=== PATIENT | male | born 1950 | race Caucasian/White ===

== ENCOUNTER 2025-03-28 10:47 | Inpatient (IN) ==
--- NOTE | 2025-03-28 11:05 | DR.N/VMALE ---
HPI Time Seen Time Seen by Provider: 03/28/25 11:02 Complaints Chief Complaint Doctors Comments: This patient complains of nausea and vomiting since 3 AM. He also stated that he has been constipated he did have some stool yesterday but it was small and hard. He has a history of colon and liver cancer. PMH PMH Past Medical History: Angina, Coronary Artery Disease, Dyslipidemia, Hypertension and Kidney Stones Past Surgical History: Yes Surgical History: Angioplasty/Stents and Bowel Resection Social History Do you use any recreational Drugs:: No ROS Review of Systems Constitutional: Other (nausea,vomiting and abdominal pain) Eyes: No Symptoms Reported ENTM: No Symptoms Reported Respiratoy: No Symptoms Reported Cardiovascular: No Symptoms Reported Gastrointestinal/Abdominal: Abdominal Pain, Nausea and Vomiting Genitourinary: No Symptoms Reported Neurological: No Symptoms Reported Musculoskeletal: No Symptoms Reported Integumentary: No Symptoms Reported Hematologic/Lymphatic: No Symptoms Reported Endocrine: No Symptoms Reported Psychiatric: No Symptoms Reported All Other Systems: Reviewed and Negative PE Vital Signs Vitals: Vital Signs Temperature 97.5 F Pulse Rate 89 Pulse Rate 89 Pulse Rate 85 Pulse Rate 96 Pulse Rate 99 Pulse Rate 95 Pulse Rate 104 Respiratory Rate 22 Blood Pressure 122/79 Blood Pressure 121/77 Blood Pressure 118/77 Blood Pressure 118/77 Blood Pressure 120/77 Blood Pressure 111/85 O2 Sat by Pulse Oximetry 95 O2 Sat by Pulse Oximetry 95 O2 Sat by Pulse Oximetry 96 O2 Sat by Pulse Oximetry 98 O2 Sat by Pulse Oximetry 97 O2 Sat by Pulse Oximetry 94 General Limitations: No Limitations General Appearance: In Distress (mild distress) Head Head Exam: Normal Inspection, Atraumatic and Normocephalic Eyes Eye exam: Normal Appearance, PERRL and EOMI ENT ENT Exam: Normal Exam Neck Neck Exam: Normal Inspection Chest Chest Inspection: Normal Inspection and Symmetric Chest Wall Rise Respiratory Respiratory Exam: Normal Lung Sounds Bilat Respiratory Exam: Bilateral: Clear to Auscultation Cardiovascular Cardiovascular Exam: Regular Rate Abdominal Exam Abdominal Exam: Normal Inspection, Normal Bowel Sounds, Soft and Tenderness (periumbilical) Rectal Rectal Exam: Deferred Extremities Extremities Exam: Normal Inspection Back Back Exam: Normal Inspection Neurologic Neurological Exam: Alert, Oriented X3 and CN II-XII Intact Psychiatric Psychiatric Exam: Normal Affect MDM Differential Diagnosis Differential Diagnosis: Considerations may Include:: Appendicitis, Bowel Obstruction, Food Poisoning, Gastroenteritis and Other COURSE Treatment Treatment: Patient remained relatively stable during ER evaluation. We did do some blood work on this patient and his CBC showed a WBC of 19.7 hemoglobin was 14.8 hematocrit 44.9 platelets were 313. He did a metabolic panel that was significant for BUN was 20 creatinine 1.18 blood sugar was 146 his GFR was 60. We did a CT scan of his abdomen pelvis that showed a #1 small bowel obstruction #2 multiple renal cyst #3 moderate stool and #4 fat-containing right inguinal hernia. There was no appendicitis or diverticulitis present. Patient was given a total of 8 mg Zofran in the ER and was given also Zosyn 3.375 mg IV. Consultation was made with Dr. Tovar at 1300 and told about the patient with the small bowel obstruction she except that he the patient to our services knowing that we also would consult Dr. Carcamo from further surgical evaluation of this patient. Patient was told of the plan to admit to Dr. Tovar and have Dr. Rubio consult on him and he agreed to the consultation and admission. Case management was consulted and they said this patient could be put in as an inpatient admission [facility] Labs Reviewed Laboratory Results Reviewed?: Yes 03/28/25 11:03 03/28/25 11:03 Laboratory: WBC 19.7 X10^3/uL (3.6-10.0) H 03/28/25 11:03 RBC 4.99 X10^6/uL (4.7-6.0) 03/28/25 11:03 Hgb 14.8 g/dL (13.5-18.0) 03/28/25 11:03 Hct 44.9 % (42.0-54.0) 03/28/25 11:03 MCV 89.9 fL (80.0-100.0) 03/28/25 11:03 MCH 29.7 pg (27.0-34.0) 03/28/25 11:03 MCHC 33.0 g/dL (33.0-35.0) 03/28/25 11:03 RDW 13.4 % (11.6-16.5) 03/28/25 11:03 Plt Count 313 X10^3/uL (150.0-450.0) 03/28/25 11:03 Plt Count Comment Adequate (ADEQUATE) 03/28/25 11:03 MPV 9.0 fL (7.4-11.0) 03/28/25 11:03 Neut % (Auto) 91.1 % (42.0-75.0) H 03/28/25 11:03 Lymph % (Auto) 4.2 % (21.0-51.0) L 03/28/25 11:03 [place] % (Auto) 4.0 % (0.0-13.0) 03/28/25 11:03 Eos % (Auto) 0.3 % (0.9-2.9) L 03/28/25 11:03 Baso % (Auto) 0.4 % (0.2-1.0) 03/28/25 11:03 Neut # (Auto) 17.9 x10^3/uL (2.2-4.8) H 03/28/25 11:03 Lymph # (Auto) 0.8 X10^3/uL (1.3-2.9) L 03/28/25 11:03 [place] # (Auto) 0.8 x10^3/uL (0.3-0.8) 03/28/25 11:03 Eos # (Auto) 0.1 x10^3/uL (0.0-0.2) 03/28/25 11:03 Baso # (Auto) 0.1 X10^3/uL (0.0-0.1) 03/28/25 11:03 Absolute Nucleated RBC 0.0 /100WBC 03/28/25 11:03 Total Counted 100 03/28/25 11:03 Neutrophils % (Manual) 92 % (39-76) H 03/28/25 11:03 Lymphocytes % (Manual) 4 % (13-43) L 03/28/25 11:03 Monocytes % (Manual) 3 % (4-9) L 03/28/25 11:03 Eosinophils % (Manual) 1 % (0-6) 03/28/25 11:03 Plt Morphology Comment Normal (NORMAL) 03/28/25 11:03 RBC Morphology Normal (NORMAL) 03/28/25 11:03 Sodium 141 mmol/L (136-145) 03/28/25 11:03 Corrected Sodium 142 mmol/L (136-145) 03/28/25 11:03 Potassium 3.9 mmol/L (3.5-5.1) 03/28/25 11:03 Chloride 103 mmol/L (98-107) 03/28/25 11:03 Carbon Dioxide 29.7 mmol/L (21-32) 03/28/25 11:03 BUN 20 mg/dL (7-18) H 03/28/25 11:03 Creatinine 1.18 mg/dL (0.70-1.30) 03/28/25 11:03 Est GFR (MDRD) Af Amer > 60 (>60) 03/28/25 11:03 Est GFR (MDRD) Non-Af > 60 (>60) 03/28/25 11:03 Glucose 146 mg/dL (65-99) H 03/28/25 11:03 Calcium 9.6 mg/dL (8.5-10.1) 03/28/25 11:03 Corrected Calcium TNP 03/28/25 11:03 Total Bilirubin 1.60 mg/dL (0.2-1.0) H 03/28/25 11:03 AST 29 Units/L (15-37) 03/28/25 11:03 ALT 31 Units/L (12-78) 03/28/25 11:03 Alkaline Phosphatase 153 Units/L (46-116) H 03/28/25 11:03 Total Protein 8.3 g/dL (6.4-8.2) H 03/28/25 11:03 Albumin 4.5 g/dL (3.4-5.0) 03/28/25 11:03 Globulin 3.8 g/dL (2.5-4.5) 03/28/25 11:03 Albumin/Globulin Ratio 1.2 Ratio (1.1-2.1) 03/28/25 11:03 Opioid Opioid Risk Tool Total: 0 Total Score Risk Category: Low Risk Copyright: [employer] predicting aberrant behaviors Discharge Plan Diagnosis Discharge Problem: Small bowel obstruction Discharge Plan Patient Disposition: ADMITTED INPATIENT Condition: Stable Orders to Discharge Patient Discharge Orders: Transfer (Routine); Ordered 03/28/25 Ordered By: Joseph Mauricio
[2025-03-28 11:10] VITALS: BMI 31.3
[2025-03-28] MEDS: NS 1,000 ML IV 1,000 ML IV ONE (11:20)
[2025-03-28 11:21] LABS: BASOPHILS # (AUTO) 0.1 X10^3/uL (0.0-0.1); BASOPHILS % (AUTO) 0.4 % (0.2-1.0); EOSINOPHILS # (AUTO) 0.1 x10^3/uL (0.0-0.2); EOSINOPHILS % (AUTO) 0.3 % (0.9-2.9); HEMATOCRIT 44.9 % (42.0-54.0); HEMOGLOBIN 14.8 g/dL (13.5-18.0); LYMPHOCYTES # (AUTO) 0.8 X10^3/uL (1.3-2.9); LYMPHOCYTES % (AUTO) 4.2 % (21.0-51.0); MEAN CORPUSCULAR HEMOGLOBIN 29.7 pg (27.0-34.0); MEAN CORPUSCULAR VOLUME 89.9 fL (80.0-100.0); MONOCYTES # (AUTO) 0.8 x10^3/uL (0.3-0.8); NEUTROPHILS # (AUTO) 17.9 x10^3/uL (2.2-4.8); NEUTROPHILS % (AUTO) 91.1 % (42.0-75.0); PLATELET COUNT 313 X10^3/uL (150.0-450.0); RED BLOOD COUNT 4.99 X10^6/uL (4.7-6.0); RED CELL DISTRIBUTION WIDTH 13.4 % (11.6-16.5); WHITE BLOOD COUNT 19.7 X10^3/uL (3.6-10.0)
[2025-03-28] MEDS: ZOFRAN INJ 4 MG VIAL IVP ONE ×2 (11:24→12:46)
[2025-03-28 11:38] LABS: ALANINE AMINOTRANSFERASE 31 Units/L (12-78); ALBUMIN 4.5 g/dL (3.4-5.0); ALKALINE PHOSPHATASE 153 Units/L (46-116); ASPARTATE AMINO TRANSFERASE 29 Units/L (15-37); BLOOD UREA NITROGEN 20 mg/dL (7-18); CALCIUM 9.6 mg/dL (8.5-10.1); CARBON DIOXIDE 29.7 mmol/L (21-32); CHLORIDE 103 mmol/L (98-107); COR NA(FOR HYPERGLY) 142 mmol/L (136-145); CREATININE 1.18 mg/dL (0.70-1.30); GLUCOSE 146 mg/dL (65-99); POTASSIUM 3.9 mmol/L (3.5-5.1); SODIUM 141 mmol/L (136-145); TOTAL PROTEIN 8.3 g/dL (6.4-8.2); eGFR NON BLACK RACES > 60 (>60)
[2025-03-28 11:51] LABS: PLATELET MORPHOLOGY COMMENT NORMAL (NORMAL)
--- NOTE | 2025-03-28 11:57 | CT ---
EXAMINATION: ABDOMEN/PELVIS W/O CON HISTORY: Pt states he started vomiting around 0330 this morning and hasn't been able to hold anything down.; . COMPARISON: None. TECHNIQUE: Unenhanced axial images were obtained through the abdomen and pelvis using renal stone protocol. Reformatted images were obtained as well. Lack of oral and IV contrast limits diagnostic sensitivity The above CT scan was done with automated exposure control and the mA and kV was adjusted to obtain quality images according to patient size. FINDINGS: Lung bases: Bronchial thickening with atelectasis. Elevated left hemidiaphragm. No acute infiltrates Liver: No acute findings or focal lesions. Surgical clips along the right lobe of the liver which may represent partial resection. GB/Biliary: Contracted or surgically absent. No dilated duct Spleen: Normal size and density Pancreas: No acute findings. No pseudocyst or dilated duct Adrenal Glands: No mass Kidneys: No obstructing stone, hydronephrosis or solid lesion. Punctate nonobstructing stones. Bilateral renal cysts. The largest is in the left upper pole measuring 10.2 x 9.7 cm Abdominal aorta: Tapers normally Retroperitoneum: No pathologically enlarged lymph nodes Bowel: There is a small bowel obstruction with zone of transition in the right lower abdomen in the distal ileum. No free air, pneumatosis or abscess. Evaluation limited by lack of oral and IV contrast. Unremarkable appendix. No other thickened or dilated loops of bowel, free air, pneumatosis or abscess. Moderate stool in the colon. No CT evidence for appendicitis, diverticulitis. Bladder/: Ureters and bladder unremarkable. Enlarged prostate with calcification. Seminal vesicles unremarkable. Fat containing right inguinal hernia. Osseous: Mild degenerative changes in the spine. No acute findings or bony lesions. IMPRESSION: Small-bowel obstruction with zone of transition in the right lower abdomen in the distal ileum. No free air, pneumatosis or abscess. No CT evidence for appendicitis or diverticulitis. No obstructing renal stones. Multiple renal cysts. THIS IS AN ELECTRONICALLY VERIFIED FINAL REPORT 03/28/2025 11:53 AM - Electronically signed by Nick Quijano MD
[2025-03-28] MEDS: ZOSYN VIAL 3.375 GRAMS 3.375 G in NS 100 ML IV 100 ML IV ONE (12:39)
[2025-03-28] MEDS ORDERED: ULTANE GAS IN ONE (13:09)
[2025-03-28] MEDS ORDERED: XYLOCAINE 2 % (PLAIN) ONE (13:09)
[2025-03-28] MEDS ORDERED: KETAMINE HCL ONE (13:09)
[2025-03-28] MEDS: NS 1,000 ML IV 1,000 ML IV SCH (14:43)
[2025-03-28] MEDS: ZOSYN VIAL 3.375 GRAMS IV ONE (14:43)
[2025-03-28] MEDS: NS 1,000 ML IV 1,000 ML ONE (14:43)
[2025-03-28] MEDS: NS 100 ML IV 100 ML ONE (14:44)
[2025-03-28] MEDS ORDERED: PROVENTIL NEB TX 0.083% 2.5MG/ 3ML ONE (16:47)
[2025-03-28] MEDS: ZOFRAN INJ 4 MG VIAL IVP PRN (16:55)
[2025-03-28] MEDS ORDERED: PROVENTIL NEB TX 0.083% 2.5MG/ 3ML NEB SCH (17:00)
[2025-03-28] MEDS: ZOSYN VIAL 3.375 GRAMS 3.375 G in NS 100 ML IV 100 ML IV SCH (21:24)
[2025-03-28] MEDS: NS 250 ML IV 25 ML IV PRN (21:26)
--- NOTE | 2025-03-28 23:19 | DR.CONSULT ---
CONSULT Consultation for Day of: Date: 03/28/25 Chief Complaint Chief Complaint: Abdominal pain and distention, nausea and vomiting Allergies Allergies Allergy/AdvReac Type Severity Reaction Status Date / Time codeine AdvReac Intermediate Verified 03/28/25 11:11 opioids AdvReac Intermediate Uncoded 03/28/25 11:11 History of Present Illness History of Present Illness: This is a 74-year-old male who presented with several history of abdominal pain, distention with nausea and vomiting. He was brought the emergency room for evaluation. CT scan consistent with possible small bowel obstruction with transition of small bowel. History of colon cancer with resection in 2014 followed by metastatic disease to the liver in 2016 requiring liver resection and chemotherapy. Patient is now disease-free. Also history of coronary artery disease with stenting of coronary x 1 in 2014. Patient without chest pain or shortness of breath. Past Medical History Past Medical History: Angina, Coronary Artery Disease, Dyslipidemia, Hypertension and Kidney Stones Past Surgical History Surgical History: Bowel Resection, Cholecystectomy and Other Additional Surgical History: partial resection of liver for metastasis Family History Family Medical History: Diabetes Mellitus Social History Does patient currently use any type of tobacco product: No Type of Tobacco Use: None Does any household member use tobacco: Yes Alcohol Use: None Drug Use: None Medications Home Medications: codeine Adverse Reaction (Intermediate, Verified 03/28/25 11:11) opioids Adverse Reaction (Intermediate, Uncoded 03/28/25 11:11) CONTINUE taking the following medications levothyroxine 25 mcg tablet 25 mcg PO QDAY 03/28/25 [History] Review of Systems Constitutional: See HPI Eyes: No Symptoms Reported ENT: No Symptoms Reported Cardiovascular: No Symptoms Reported Gastrointestinal: See HPI Genitourinary: No Symptoms Reported Musculoskeletal: No Symptoms Reported Skin: No Symptoms Reported Neurological: No Symptoms Reported Physical Exam Vital Signs: Vital Signs Temperature 98.1 F Temperature 97.9 F Pulse Rate [Left Radial] 86 Pulse Rate [Left Radial] 92 Respiratory Rate 20 Respiratory Rate 20 Blood Pressure [Left Arm] 128/76 Blood Pressure [Left Arm] 136/78 O2 Sat by Pulse Oximetry 99 O2 Sat by Pulse Oximetry 97 Oriented: Normal, Time, Person and Place Eyes: Normal Ear: Normal Nose: Normal Throat: Normal Respiratory: Clear Throughout : Normal Auscultation: Bowel Sounds: Decreased Palpation: Other (Distended abdomen but not tender, healed midline incision of the abdomen from xiphoid to pelvis. No obvious hernias.) Tenderness: Normal Skin: Normal Musculoskeletal: Normal Psychiatric: Normal Mood Description: Calm Affect: Normal Plan (1) Small bowel obstruction: Status: Acute Plan: Patient being hydrated. NPO. Tried to pass a nasogastric tube but was unsuccessful. Patient will be observed with sequential exams and sequential x-rays. If patient does not improve may require surgical exploration. (2) Essential (primary) hypertension: Status: Acute (3) Hyperlipidemia: Status: None Qualifiers: Hyperlipidemia type: mixed hyperlipidemia Qualified Code(s): E78.2 - Mixed hyperlipidemia
[2025-03-29] MEDS: MORPHINE SULFATE INJ 2 MG INJ IVP PRN (00:14)
[2025-03-29 05:37] LABS: BASOPHILS # (AUTO) 0.1 X10^3/uL (0.0-0.1); BASOPHILS % (AUTO) 0.5 % (0.2-1.0); EOSINOPHILS # (AUTO) 0.1 x10^3/uL (0.0-0.2); EOSINOPHILS % (AUTO) 0.3 % (0.9-2.9); HEMATOCRIT 40.7 % (42.0-54.0); HEMOGLOBIN 13.6 g/dL (13.5-18.0); MEAN CORPUSCULAR HGB CONC 33.3 g/dL (33.0-35.0); MEAN CORPUSCULAR VOLUME 90.2 fL (80.0-100.0); MONOCYTES # (AUTO) 1.4 x10^3/uL (0.3-0.8); MONOCYTES % (AUTO) 7.8 % (0.0-13.0); NEUTROPHILS # (AUTO) 14.7 x10^3/uL (2.2-4.8); NEUTROPHILS % (AUTO) 85.4 % (42.0-75.0); PLATELET COUNT 281 X10^3/uL (150.0-450.0); RED BLOOD COUNT 4.51 X10^6/uL (4.7-6.0); RED CELL DISTRIBUTION WIDTH 13.9 % (11.6-16.5); WHITE BLOOD COUNT 17.3 X10^3/uL (3.6-10.0)
[2025-03-29 05:51] LABS: ALANINE AMINOTRANSFERASE 26 Units/L (12-78); ALBUMIN 3.7 g/dL (3.4-5.0); ALKALINE PHOSPHATASE 119 Units/L (46-116); ASPARTATE AMINO TRANSFERASE 20 Units/L (15-37); BLOOD UREA NITROGEN 21 mg/dL (7-18); CALCIUM 8.7 mg/dL (8.5-10.1); CARBON DIOXIDE 32.7 mmol/L (21-32); CHLORIDE 105 mmol/L (98-107); COR NA(FOR HYPERGLY) 146 mmol/L (136-145); CREATININE 1.13 mg/dL (0.70-1.30); GLUCOSE 126 mg/dL (65-99); POTASSIUM 3.5 mmol/L (3.5-5.1); SODIUM 145 mmol/L (136-145); TOTAL PROTEIN 7.1 g/dL (6.4-8.2); eGFR NON BLACK RACES > 60 (>60)
--- NOTE | 2025-03-29 07:59 | RAD ---
EXAM: ACUTE ABDOMEN SERI ES HISTORY: SMALL BOWEL OBSTRUCTION; HX: CAD, HTN, COLON AND LIVER CANCER SX: HERNIA REPAIR, BOWEL RESECTION, STENTS COMPARISON: CT from same date TECHNIQUE: AP chest; AP abdomen supine and upright FINDINGS: Unremarkable cardiac silhouette. Low lung volumes. No focal consolidation, pleural effusion, or visible pneumothorax. Mildly prominent air-filled small bowel loop in the mid abdomen. Scattered air-filled small and large bowel loops. Right upper quadrant metallic surgical clips. No free peritoneal air. IMPRESSION: Persistent mildly prominent air-filled small bowel loops in the mid abdomen. No free peritoneal air. THIS IS AN ELECTRONICALLY VERIFIED FINAL REPORT 03/29/2025 7:56 AM - Electronically signed by Chino Denis MD
--- NOTE | 2025-03-29 14:34 | RAD ---
EXAM: ACUTE ABDOMEN SERI ES HISTORY: SBO; COMPARISON: 03/28/2025 TECHNIQUE: AP chest; AP abdomen supine and upright FINDINGS: Unremarkable cardiac silhouette. No focal consolidation, pleural effusion, or visible pneumothorax. Persistent prominent air-filled small bowel loops in the mid abdomen. Relative paucity of large bowel gas. No free peritoneal air. Right upper quadrant metallic surgical clips. IMPRESSION: Persistent prominent small bowel loops in the mid abdomen, suspicious for obstruction. THIS IS AN ELECTRONICALLY VERIFIED FINAL REPORT 03/29/2025 2:30 PM - Electronically signed by Chino Denis MD
--- NOTE | 2025-03-29 15:01 | DR.H&P ---
H&P History & Physical for Day of: H&P Date: 03/29/25 Chief Complaint Chief Complaint: N/V and abdominal pain History of Present Illness History of Present Illness: Mr Ramirez is a 74y/o male with a PMH of Colon cancer, HTN, CAD, HLD presented with worsening N/V abdominal pain that started previous night. He has a hx of prev SBO, colon resection and part of liver resection. ER work up showed CTAP concerning for SBO. He had elevated WBC. He was started on fluids, IV antibiotics, pain control and NPO. Dr Rubio with general surgery was consulted. NGT was attempted but unsuccessful. He was admitted for further management. He is feeling better today. He had one episode of vomiting this morning. He states abdominal pain has eased now. KUB pending. Labs/imaging reviewed: -WBC 17.3 Hgb 13.6 K 3.5 Cr 1.13 -CTAP reviewed Plan: Follow surgery recommendations, keep NPO. Continue fluids, pain control and IV Zosyn. Follow KUB results. Replace electrolytes as per protocol. Monitor AM labs/imaging. Past Medical History Past Medical History: Angina, Coronary Artery Disease, Dyslipidemia, Hypertension and Kidney Stones Past Surgical History Surgical History: Bowel Resection, Cholecystectomy and Other Additional Surgical History: partial resection of liver for metastasis Family History Family Medical History: Diabetes Mellitus Social History Does patient currently use any type of tobacco product: No Type of Tobacco Use: None Does any household member use tobacco: Yes Alcohol Use: None Drug Use: None Medications Home Medications: Home Medications Medication Instructions Recorded Confirmed Type levothyroxine 25 mcg tablet 25 mcg PO QDAY 03/28/25 History Allergies Allergies Allergy/AdvReac Type Severity Reaction Status Date / Time codeine AdvReac Intermediate Verified 03/28/25 11:11 opioids AdvReac Intermediate Uncoded 03/28/25 11:11 Labs 03/29/25 05:12 03/29/25 05:12 Labs: Laboratory WBC 17.3 X10^3/uL (3.6-10.0) H 03/29/25 05:12 RBC 4.51 X10^6/uL (4.7-6.0) L 03/29/25 05:12 Hgb 13.6 g/dL (13.5-18.0) 03/29/25 05:12 Hct 40.7 % (42.0-54.0) L 03/29/25 05:12 MCV 90.2 fL (80.0-100.0) 03/29/25 05:12 MCH 30.0 pg (27.0-34.0) 03/29/25 05:12 MCHC 33.3 g/dL (33.0-35.0) 03/29/25 05:12 RDW 13.9 % (11.6-16.5) 03/29/25 05:12 Plt Count 281 X10^3/uL (150.0-450.0) 03/29/25 05:12 Plt Count Comment Adequate (ADEQUATE) 03/28/25 11:03 MPV 9.0 fL (7.4-11.0) 03/29/25 05:12 Neut % (Auto) 85.4 % (42.0-75.0) H 03/29/25 05:12 Lymph % (Auto) 6.0 % (21.0-51.0) L 03/29/25 05:12 [place] % (Auto) 7.8 % (0.0-13.0) 03/29/25 05:12 Eos % (Auto) 0.3 % (0.9-2.9) L 03/29/25 05:12 Baso % (Auto) 0.5 % (0.2-1.0) 03/29/25 05:12 Neut # (Auto) 14.7 x10^3/uL (2.2-4.8) H 03/29/25 05:12 Lymph # (Auto) 1.0 X10^3/uL (1.3-2.9) L 03/29/25 05:12 [place] # (Auto) 1.4 x10^3/uL (0.3-0.8) H 03/29/25 05:12 Eos # (Auto) 0.1 x10^3/uL (0.0-0.2) 03/29/25 05:12 Baso # (Auto) 0.1 X10^3/uL (0.0-0.1) 03/29/25 05:12 Absolute Nucleated RBC 0.0 /100WBC 03/29/25 05:12 Total Counted 100 03/28/25 11:03 Neutrophils % (Manual) 92 % (39-76) H 03/28/25 11:03 Lymphocytes % (Manual) 4 % (13-43) L 03/28/25 11:03 Monocytes % (Manual) 3 % (4-9) L 03/28/25 11:03 Eosinophils % (Manual) 1 % (0-6) 03/28/25 11:03 Plt Morphology Comment Normal (NORMAL) 03/28/25 11:03 RBC Morphology Normal (NORMAL) 03/28/25 11:03 Sodium 145 mmol/L (136-145) 03/29/25 05:12 Corrected Sodium 146 mmol/L (136-145) H 03/29/25 05:12 Potassium 3.5 mmol/L (3.5-5.1) 03/29/25 05:12 Chloride 105 mmol/L (98-107) 03/29/25 05:12 Carbon Dioxide 32.7 mmol/L (21-32) H 03/29/25 05:12 BUN 21 mg/dL (7-18) H 03/29/25 05:12 Creatinine 1.13 mg/dL (0.70-1.30) 03/29/25 05:12 Est GFR (MDRD) Af Amer > 60 (>60) 03/29/25 05:12 Est GFR (MDRD) Non-Af > 60 (>60) 03/29/25 05:12 Glucose 126 mg/dL (65-99) H 03/29/25 05:12 Calcium 8.7 mg/dL (8.5-10.1) 03/29/25 05:12 Corrected Calcium TNP 03/29/25 05:12 Total Bilirubin 1.50 mg/dL (0.2-1.0) H 03/29/25 05:12 AST 20 Units/L (15-37) 03/29/25 05:12 ALT 26 Units/L (12-78) 03/29/25 05:12 Alkaline Phosphatase 119 Units/L (46-116) H 03/29/25 05:12 Total Protein 7.1 g/dL (6.4-8.2) 03/29/25 05:12 Albumin 3.7 g/dL (3.4-5.0) 03/29/25 05:12 Globulin 3.4 g/dL (2.5-4.5) 03/29/25 05:12 Albumin/Globulin Ratio 1.1 Ratio (1.1-2.1) 03/29/25 05:12 Review of Systems Constitutional: See HPI Eyes: No Symptoms Reported ENT: No Symptoms Reported Cardiovascular: No Symptoms Reported Gastrointestinal: See HPI Genitourinary: No Symptoms Reported Musculoskeletal: No Symptoms Reported Skin: No Symptoms Reported Neurological: No Symptoms Reported Physical Exam Vital Signs: Vital Signs Temperature 97.6 F Temperature 97.8 F Pulse Rate [Left Radial] 66 Pulse Rate [Left Radial] 81 Respiratory Rate 20 Respiratory Rate 20 Blood Pressure [Left Arm] 121/74 Blood Pressure [Left Arm] 136/84 O2 Sat by Pulse Oximetry 95 O2 Sat by Pulse Oximetry 95 Oriented: Normal, Time, Person and Place Respiratory: Clear Throughout Cardiovascular: Normal Auscultation: Bowel Sounds: Normal Tenderness: LLQ and Mild Skin: Normal Musculoskeletal: Normal Psychiatric: Normal Mood Description: Calm Affect: Normal Speech Pattern: Clear and Appropriate Assessment/Plan (1) Small bowel obstruction: Status: Acute (2) Essential (primary) hypertension: Status: Chronic (3) Hyperlipidemia: Qualifiers: Hyperlipidemia type: mixed hyperlipidemia Qualified Code(s): E78.2 - Mixed hyperlipidemia Status: None Review H&P Reviewed: Yes Patient was examined?: Yes
--- NOTE | 2025-03-29 17:12 | NOTE.SOAP ---
Soap Note Note for Day of Date of Exam: 03/29/25 Subjective Data Subjective Data: Patient essentially unchanged. Had 1 episode of vomiting last night. Pain and nausea be controlled with IV medications. Unable to pass nasogastric tube while the patient awake. Objective Data Temperature: 98.0 F Pulse Rate: 68 Respiratory Rate: 21 Blood Pressure: 143/90 O2 Sat by Pulse Oximetry: 95 Objective Data: Abdomen distended but not tender. Repeat abdominal series this a.m. still shows dilated loops of small bowel suspicious for small bowel obstruction Assessment Assessment: Small bowel obstruction Plan Plan: Conceded current conservative management at this time with reevaluation clinical and with x-rays
[2025-03-30 05:14] LABS: ALANINE AMINOTRANSFERASE 22 Units/L (12-78); ALBUMIN 3.2 g/dL (3.4-5.0); ALKALINE PHOSPHATASE 96 Units/L (46-116); ASPARTATE AMINO TRANSFERASE 19 Units/L (15-37); BLOOD UREA NITROGEN 19 mg/dL (7-18); CALCIUM 7.8 mg/dL (8.5-10.1); CARBON DIOXIDE 22.1 mmol/L (21-32); CHLORIDE 108 mmol/L (98-107); COR CA(FOR HYPOALB) 8.4 mg/dL (8.5-10.1); CREATININE 0.87 mg/dL (0.70-1.30); GLUCOSE 93 mg/dL (65-99); POTASSIUM 3.5 mmol/L (3.5-5.1); SODIUM 141 mmol/L (136-145); TOTAL PROTEIN 6.3 g/dL (6.4-8.2); eGFR NON BLACK RACES > 60 (>60)
[2025-03-30 06:14] LABS: BASOPHILS # (AUTO) 0.1 X10^3/uL (0.0-0.1); BASOPHILS % (AUTO) 0.5 % (0.2-1.0); EOSINOPHILS # (AUTO) 0.4 x10^3/uL (0.0-0.2); EOSINOPHILS % (AUTO) 2.9 % (0.9-2.9); HEMOGLOBIN 12.6 g/dL (13.5-18.0); LYMPHOCYTES # (AUTO) 1.4 X10^3/uL (1.3-2.9); LYMPHOCYTES % (AUTO) 10.5 % (21.0-51.0); MEAN CORPUSCULAR HEMOGLOBIN 29.9 pg (27.0-34.0); MEAN CORPUSCULAR VOLUME 90.6 fL (80.0-100.0); MEAN PLATELET VOLUME 8.9 fL (7.4-11.0); MONOCYTES # (AUTO) 1.2 x10^3/uL (0.3-0.8); MONOCYTES % (AUTO) 8.6 % (0.0-13.0); NEUTROPHILS # (AUTO) 10.5 x10^3/uL (2.2-4.8); NEUTROPHILS % (AUTO) 77.5 % (42.0-75.0); PLATELET COUNT 236 X10^3/uL (150.0-450.0); RED BLOOD COUNT 4.19 X10^6/uL (4.7-6.0); RED CELL DISTRIBUTION WIDTH 13.8 % (11.6-16.5); WHITE BLOOD COUNT 13.5 X10^3/uL (3.6-10.0)
[2025-03-30] MEDS ORDERED: CONSULT PHARMACY - POTASSIUM & MAGNESIUM XX SCH (07:00)
[2025-03-30] MEDS: K-RIDER 10 MEQ/100 ML WATER 10 MEQ/100 ML BAG IV SCH (08:20)
--- NOTE | 2025-03-30 12:01 | PCM.PROG ---
Progress Note Progress Note for Day of Date of Exam: 03/30/25 Subjective Subjective: Patient seen at bedside, no acute events overnight. He is feeling better. He did not have any nausea or vomiting yesterday. KUB yesterday did show bowel obstruction. Dr. Rubio is following. He was started on clear liquids today. He did have 4 BMs since yesterday. He reports history of constipation, takes MiraLAX daily. He has also been on weekly injectable for weight loss. He used to be on Ozempic but currently takes another medication. Labs/imaging reviewed: - WBC 13.5 hemoglobin 12.6 potassium 3.5 creatinine 0.87 - KUB pending Plan: Follow KUB from today, continue hydration and pain control. Continue IV Zosyn. Follow surgery recommendations. Continue clears as tolerated. Replace electrolytes as per protocol. Resume home medications. Monitor a.m. labs and imaging. Past Medical Family Social History Allergies: Allergies codeine Adverse Reaction (Intermediate, Verified 03/28/25 11:11) opioids Adverse Reaction (Intermediate, Uncoded 03/28/25 11:11) Vital Signs and I&O's Vital Signs: Vital Signs Temperature 98.0 F Pulse Rate [Left Radial] 64 Respiratory Rate 20 Blood Pressure [Left Arm] 126/72 O2 Sat by Pulse Oximetry 93 Intake and Output: Intake & Output 03/27/25 03/28/25 03/29/25 03/30/25 23:59 23:59 23:59 23:59 Intake Total 1455 / 1455 2463 / 2463 869 / 869 Balance 1455 / 1455 2463 / 2463 869 / 869 Physical Exam Oriented: Normal, Time, Person and Place Eyes: Normal Ear: Normal Nose: Normal Throat: Normal Cardiovascular: Normal Auscultation: Bowel Sounds: Normal Palpation: Normal Tenderness: LLQ and Mild Skin: Normal Musculoskeletal: Normal Psychiatric: Normal Mood Description: Calm Affect: Normal Speech Pattern: Clear and Appropriate Laboratory and Diagnostics 03/30/25 05:46 03/30/25 04:18 Labs: Laboratory WBC 13.5 X10^3/uL (3.6-10.0) H 03/30/25 05:46 RBC 4.19 X10^6/uL (4.7-6.0) L 03/30/25 05:46 Hgb 12.6 g/dL (13.5-18.0) L 03/30/25 05:46 Hct 38.0 % (42.0-54.0) L 03/30/25 05:46 MCV 90.6 fL (80.0-100.0) 03/30/25 05:46 MCH 29.9 pg (27.0-34.0) 03/30/25 05:46 MCHC 33.0 g/dL (33.0-35.0) 03/30/25 05:46 RDW 13.8 % (11.6-16.5) 03/30/25 05:46 Plt Count 236 X10^3/uL (150.0-450.0) 03/30/25 05:46 Plt Count Comment Adequate (ADEQUATE) 03/28/25 11:03 MPV 8.9 fL (7.4-11.0) 03/30/25 05:46 Neut % (Auto) 77.5 % (42.0-75.0) H 03/30/25 05:46 Lymph % (Auto) 10.5 % (21.0-51.0) L 03/30/25 05:46 Harding % (Auto) 8.6 % (0.0-13.0) 03/30/25 05:46 Eos % (Auto) 2.9 % (0.9-2.9) 03/30/25 05:46 Baso % (Auto) 0.5 % (0.2-1.0) 03/30/25 05:46 Neut # (Auto) 10.5 x10^3/uL (2.2-4.8) H 03/30/25 05:46 Lymph # (Auto) 1.4 X10^3/uL (1.3-2.9) 03/30/25 05:46 Harding # (Auto) 1.2 x10^3/uL (0.3-0.8) H 03/30/25 05:46 Eos # (Auto) 0.4 x10^3/uL (0.0-0.2) H 03/30/25 05:46 Baso # (Auto) 0.1 X10^3/uL (0.0-0.1) 03/30/25 05:46 Absolute Nucleated RBC 0.2 /100WBC 03/30/25 05:46 Total Counted 100 03/28/25 11:03 Neutrophils % (Manual) 92 % (39-76) H 03/28/25 11:03 Lymphocytes % (Manual) 4 % (13-43) L 03/28/25 11:03 Monocytes % (Manual) 3 % (4-9) L 03/28/25 11:03 Eosinophils % (Manual) 1 % (0-6) 03/28/25 11:03 Plt Morphology Comment Normal (NORMAL) 03/28/25 11:03 RBC Morphology Normal (NORMAL) 03/28/25 11:03 Sodium 141 mmol/L (136-145) 03/30/25 04:18 Corrected Sodium TNP 03/30/25 04:18 Potassium 3.5 mmol/L (3.5-5.1) 03/30/25 04:18 Chloride 108 mmol/L (98-107) H 03/30/25 04:18 Carbon Dioxide 22.1 mmol/L (21-32) 03/30/25 04:18 BUN 19 mg/dL (7-18) H 03/30/25 04:18 Creatinine 0.87 mg/dL (0.70-1.30) 03/30/25 04:18 Est GFR (MDRD) Af Amer > 60 (>60) 03/30/25 04:18 Est GFR (MDRD) Non-Af > 60 (>60) 03/30/25 04:18 Glucose 93 mg/dL (65-99) 03/30/25 04:18 Calcium 7.8 mg/dL (8.5-10.1) L 03/30/25 04:18 Corrected Calcium 8.4 mg/dL (8.5-10.1) L 03/30/25 04:18 Magnesium 2.4 mg/dL (2.0-2.9) 03/30/25 04:18 Total Bilirubin 1.10 mg/dL (0.2-1.0) H 03/30/25 04:18 AST 19 Units/L (15-37) 03/30/25 04:18 ALT 22 Units/L (12-78) 03/30/25 04:18 Alkaline Phosphatase 96 Units/L (46-116) 03/30/25 04:18 Total Protein 6.3 g/dL (6.4-8.2) L 03/30/25 04:18 Albumin 3.2 g/dL (3.4-5.0) L 03/30/25 04:18 Globulin 3.1 g/dL (2.5-4.5) 03/30/25 04:18 Albumin/Globulin Ratio 1.0 Ratio (1.1-2.1) L 03/30/25 04:18 Plan (1) Small bowel obstruction: Status: Acute (2) Essential (primary) hypertension: Status: Chronic (3) Hyperlipidemia: Status: None Qualifiers: Hyperlipidemia type: mixed hyperlipidemia Qualified Code(s): E78.2 - Mixed hyperlipidemia
[2025-03-30] MEDS: SINGULAIR TAB 10 MG PO SCH (12:16)
[2025-03-30] MEDS: SYNTHROID 25 mcg TAB PO SCH (12:16)
--- NOTE | 2025-03-30 18:42 | NOTE.SOAP ---
Soap Note Note for Day of Date of Exam: 03/30/25 Subjective Data Subjective Data: Patient admitted with diagnosis of small bowel obstruction. Patient has had 2 large bowel movements. No further vomiting. Abdomen still distended. Abdominal series pending. Objective Data Temperature: 99.1 F Pulse Rate: 68 Respiratory Rate: 21 Blood Pressure: 135/84 O2 Sat by Pulse Oximetry: 93 Objective Data: Abdomen benign but still moderately distended Assessment Assessment: Small bowel obstruction having bowel movements. Plan Plan: Continue observation. Will begin clear liquid diet. Repeat films in a.m.
[2025-03-30] MEDS: LIPITOR TAB 40 MG PO SCH (21:05)
[2025-03-30] MEDS: FLOMAX PO SCH (21:05)
[2025-03-31 06:02] LABS: BASOPHILS # (AUTO) 0.1 X10^3/uL (0.0-0.1); BASOPHILS % (AUTO) 0.5 % (0.2-1.0); EOSINOPHILS # (AUTO) 0.2 x10^3/uL (0.0-0.2); EOSINOPHILS % (AUTO) 1.1 % (0.9-2.9); HEMOGLOBIN 12.8 g/dL (13.5-18.0); LYMPHOCYTES % (AUTO) 6.8 % (21.0-51.0); MEAN CORPUSCULAR HEMOGLOBIN 30.4 pg (27.0-34.0); MEAN CORPUSCULAR HGB CONC 33.6 g/dL (33.0-35.0); MEAN CORPUSCULAR VOLUME 90.5 fL (80.0-100.0); MEAN PLATELET VOLUME 8.9 fL (7.4-11.0); MONOCYTES # (AUTO) 1.3 x10^3/uL (0.3-0.8); MONOCYTES % (AUTO) 9.3 % (0.0-13.0); NEUTROPHILS # (AUTO) 11.9 x10^3/uL (2.2-4.8); NEUTROPHILS % (AUTO) 82.3 % (42.0-75.0); PLATELET COUNT 231 X10^3/uL (150.0-450.0); RED CELL DISTRIBUTION WIDTH 13.6 % (11.6-16.5); WHITE BLOOD COUNT 14.5 X10^3/uL (3.6-10.0)
[2025-03-31 06:20] LABS: ALANINE AMINOTRANSFERASE 25 Units/L (12-78); ALBUMIN 3.1 g/dL (3.4-5.0); ALKALINE PHOSPHATASE 90 Units/L (46-116); ASPARTATE AMINO TRANSFERASE 26 Units/L (15-37); BLOOD UREA NITROGEN 13 mg/dL (7-18); CALCIUM 8.2 mg/dL (8.5-10.1); CARBON DIOXIDE 22.5 mmol/L (21-32); CHLORIDE 105 mmol/L (98-107); COR CA(FOR HYPOALB) 8.9 mg/dL (8.5-10.1); CREATININE 0.78 mg/dL (0.70-1.30); GLUCOSE 103 mg/dL (65-99); POTASSIUM 3.6 mmol/L (3.5-5.1); SODIUM 137 mmol/L (136-145); TOTAL PROTEIN 6.5 g/dL (6.4-8.2); eGFR NON BLACK RACES > 60 (>60)
--- NOTE | 2025-03-31 06:42 | RAD ---
EXAMINATION: ACUTE ABDOMEN SERI ES HISTORY: SMALL BOWEL OBSTRUCTION; . COMPARISON STUDY: Acute abdominal series 03/29/2025 TECHNIQUE: Single frontal view of the chest and two views of the abdomen frontal supine and upright projections FINDINGS: The lungs are expanded. Subtle patchy alveolar infiltrates in both lungs. Borderline cardiac silhouette enlargement. Normal pulmonary vascular pattern. Normal bowel-gas pattern. No evidence of intraperitoneal free air. Surgical clips right upper abdomen. Bones appear intact. Multiple calcifications in the lower pelvis probable vascular phleboliths. IMPRESSION: Patchy infiltrates in both lungs. Borderline cardiac silhouette enlargement. Normal bowel-gas pattern. THIS IS AN ELECTRONICALLY VERIFIED FINAL REPORT 03/31/2025 6:38 AM - Electronically signed by Lori Moore MD
--- NOTE | 2025-03-31 06:53 | RAD ---
EXAMINATION: ACUTE ABDOMEN SERI ES HISTORY: SBO; . COMPARISON STUDY: Acute abdominal series 03/30/2025 TECHNIQUE: Single frontal view of the chest and two views of the abdomen frontal supine and upright projections FINDINGS: Mild cardiac silhouette enlargement. Subtle patchy interstitial alveolar opacities in both lungs. Mild gaseous distention of proximal and distal loops of small bowel. No evidence of intraperitoneal free air. Surgical clips right upper abdomen. Visualized bones are intact. IMPRESSION: Nonspecific mild gaseous distention of proximal and distal small bowel. Streaky opacities in both lungs. Mild cardiac silhouette enlargement. THIS IS AN ELECTRONICALLY VERIFIED FINAL REPORT 03/31/2025 6:49 AM - Electronically signed by Lori Moore MD
[2025-03-31] MEDS ORDERED: CONSULT PHARMACY - POTASSIUM & MAGNESIUM XX SCH (07:00)
[2025-03-31] MEDS ORDERED: TORADOL 15 MG VIAL IVP PRN (08:43)
[2025-03-31] MEDS: NS + KCL 20 MEQ/L 1,000 ML IV ONE (08:54)
[2025-03-31] MEDS: PROTONIX INJ 40 MG VIAL IVP ONE (08:54)
[2025-03-31] MEDS: SYNTHROID INJ 100 mcg VIAL IVP SCH (08:54)
[2025-03-31] MEDS: COMPAZINE INJ IVP PRN (08:54)
[2025-03-31] MEDS ORDERED: K-DUR TAB 20 MEQ PO ONE (09:00)
[2025-03-31] MEDS: XOPENEX 1.25 MG/3 ML NEBULE NEB SCH (09:08)
[2025-03-31] MEDS: PULMICORT NEB TX 0.5 MG NEB SCH (09:08)
--- NOTE | 2025-03-31 09:23 | NOTE.SOAP ---
Soap Note Note for Day of Date of Exam: 03/31/25 Subjective Data Subjective Data: Started with symptoms night, 03/27, with abdominal pain and nausea. Started vomiting Monday and came to the ER. Found to have a SBO. Surgery and medicine co-managing the patient. Was able to start a clear liquid diet yesterday but reports 1 episode of emesis this morning. Did not have a good night due to belly pain last night. Objective Data Objective Data: Elderly male, looks tired, looks uncomfortable. Hearing intact conversation, wearing glasses, head NC with a well-healed scar of the right alevism. Bowel sounds are present but belly is distended and tender. Heart regular rate and rhythm. Faint crackles at the bilateral bases. Assessment Assessment: 1. SBO, acute, resolving. 2. Simple chronic bronchitis, not in exacerbation. 3. Benign essential HTN, chronic. 4. Acquired hypothyroidism, chronic. Plan Plan: Continue Zosyn. Start pneumonia protocol due to bibasilar infiltrates on his abdominal films yesterday and today. N.p.o. today. Stop p.o. meds. Convert to IV. Continue with surgery recommendations.
[2025-03-31] MEDS: NS 1,000 ML IV 1,000 ML IV SCH (17:21)
--- NOTE | 2025-03-31 19:05 | NOTE.SOAP ---
Soap Note Note for Day of Date of Exam: 03/31/25 Subjective Data Subjective Data: Patient did not tolerate clear liquids and had vomiting earlier this morning. Made NPO. Still passing no flatus. No further bowel movements and patient still distended and uncomfortable. Objective Data Temperature: 97.7 F Pulse Rate: 65 Respiratory Rate: 16 Blood Pressure: 131/84 O2 Sat by Pulse Oximetry: 96 Objective Data: Abdomen remains distended but is not tender. Abdominal films still show dilated loops of small bowel Assessment Assessment: High-grade small bowel obstruction possibly partial. Patient not improving. Plan Plan: Continued on same course tomorrow will require laparotomy and lysis of adhesions, possible bowel resection
[2025-04-01] MEDS: NOZIN NASAL SANITIZER TP ONE (06:13)
[2025-04-01 06:24] LABS: BASOPHILS # (AUTO) 0.1 X10^3/uL (0.0-0.1); BASOPHILS % (AUTO) 0.4 % (0.2-1.0); EOSINOPHILS # (AUTO) 0.4 x10^3/uL (0.0-0.2); EOSINOPHILS % (AUTO) 2.3 % (0.9-2.9); HEMATOCRIT 39.5 % (42.0-54.0); LYMPHOCYTES # (AUTO) 1.1 X10^3/uL (1.3-2.9); LYMPHOCYTES % (AUTO) 6.3 % (21.0-51.0); MEAN CORPUSCULAR HEMOGLOBIN 29.9 pg (27.0-34.0); MEAN CORPUSCULAR VOLUME 90.6 fL (80.0-100.0); MEAN PLATELET VOLUME 8.9 fL (7.4-11.0); MONOCYTES # (AUTO) 1.6 x10^3/uL (0.3-0.8); MONOCYTES % (AUTO) 9.3 % (0.0-13.0); NEUTROPHILS # (AUTO) 14.4 x10^3/uL (2.2-4.8); NEUTROPHILS % (AUTO) 81.7 % (42.0-75.0); PLATELET COUNT 233 X10^3/uL (150.0-450.0); RED BLOOD COUNT 4.36 X10^6/uL (4.7-6.0); RED CELL DISTRIBUTION WIDTH 13.6 % (11.6-16.5); WHITE BLOOD COUNT 17.6 X10^3/uL (3.6-10.0)
[2025-04-01 06:37] LABS: ALANINE AMINOTRANSFERASE 29 Units/L (12-78); ALBUMIN 3.4 g/dL (3.4-5.0); ALKALINE PHOSPHATASE 92 Units/L (46-116); ASPARTATE AMINO TRANSFERASE 25 Units/L (15-37); BLOOD UREA NITROGEN 12 mg/dL (7-18); CALCIUM 8.5 mg/dL (8.5-10.1); CARBON DIOXIDE 23.3 mmol/L (21-32); CHLORIDE 106 mmol/L (98-107); CREATININE 0.87 mg/dL (0.70-1.30); GLUCOSE 98 mg/dL (65-99); POTASSIUM 3.2 mmol/L (3.5-5.1); SODIUM 140 mmol/L (136-145); TOTAL PROTEIN 7.1 g/dL (6.4-8.2); eGFR NON BLACK RACES > 60 (>60)
[2025-04-01] MEDS ORDERED: CONSULT PHARMACY - POTASSIUM & MAGNESIUM XX SCH (08:00)
[2025-04-01] MEDS: NS + KCL 20 MEQ/L 1,000 ML IV SCH (08:48)
--- NOTE | 2025-04-01 09:36 | EKG ---
Test Reason : pre op Blood Pressure : */* mmHG Vent. Rate : 75 BPM Atrial Rate : 75 BPM P-R Int : 178 ms QRS Dur : 92 ms QT Int : 396 ms P-R-T Axes : 42 22 34 degrees QTc Int : 442 ms Normal sinus rhythm Normal ECG No previous ECGs available Confirmed by Ion Nieves MD ([id number]) on 04/01/2025 11:17:49 AM Referred By: Confirmed By: Ion Nieves MD
[2025-04-01 11:32] LABS: INR 1.12 (0.8-1.3)
--- NOTE | 2025-04-01 12:46 | DR.CONSULT ---
CONSULT Consultation for Day of: Date: 04/01/25 Chief Complaint Chief Complaint: SBO- preop clearance Allergies Allergies Allergy/AdvReac Type Severity Reaction Status Date / Time codeine AdvReac Intermediate Verified 03/28/25 11:11 opioids AdvReac Intermediate Uncoded 03/28/25 11:11 History of Present Illness History of Present Illness: 74 yo male- multiple abdominal surgeries for colon cancer/liver cancer- also has h/o LAD stent 2014- off asa due to recent procedure- on statin/ccb- no bb as hr tends to run low- active walking 1/2 mile last week w/o sign sx- last stress years ago- admitted for SBO- sx started last - needs surgery Past Medical History Past Medical History: Angina, Coronary Artery Disease, Dyslipidemia, Hypertension and Kidney Stones Past Surgical History Surgical History: Bowel Resection, Cholecystectomy and Other Additional Surgical History: partial resection of liver for metastasis Family History Family Medical History: Diabetes Mellitus Social History Does patient currently use any type of tobacco product: No Have you used tobacco products in the last 12 months: No Type of Tobacco Use: None Does any household member use tobacco: Yes Alcohol Use: None Drug Use: None Medications Home Medications: codeine Adverse Reaction (Intermediate, Verified 03/28/25 11:11) opioids Adverse Reaction (Intermediate, Uncoded 03/28/25 11:11) CONTINUE taking the following medications levothyroxine 25 mcg tablet 25 mcg PO QDAY 03/28/25 [History] Physical Exam Vital Signs: Vital Signs Temperature 97.7 F Temperature 98.3 F Pulse Rate [Left Radial] 74 Pulse Rate [Left Radial] 78 Pulse Rate 76 Respiratory Rate 20 Respiratory Rate 20 Blood Pressure [Left Arm] 138/86 Blood Pressure [Left Arm] 141/83 O2 Sat by Pulse Oximetry 92 O2 Sat by Pulse Oximetry 91 O2 Sat by Pulse Oximetry 92 alert ox3 mild wheeze heard w/o stethoscope rrr soft jc minimal edema distended abdomen ekg: normal echo: normal LV, pa 32 mm hg, mild MR Plan (1) Small bowel obstruction: Status: Acute (2) Essential (primary) hypertension: Status: Chronic (3) Hyperlipidemia: Status: None Qualifiers: Hyperlipidemia type: mixed hyperlipidemia Qualified Code(s): E78.2 - Mixed hyperlipidemia (4) CAD (coronary artery disease): Status: Acute (5) Preop cardiovascular exam: Status: Acute Narrative Support Text: off asa now for previous procedure- on statin- no ccb as npo - BB not good as relatively low hr/wheezing- will add ntg patch- acceptable cv risk as no overt sx/good lv (6) Wheezing: Status: Acute Narrative Support Text: suspect abdominal distension contributing- good lV on echo- being treated w b agonists- did smoke in past
[2025-04-01] MEDS ORDERED: LASIX IVP ONE (13:00)
[2025-04-01] MEDS: LASIX IVP SCH (13:22)
[2025-04-01] MEDS: NITRODUR PATCH 0.1 MG/HR TD SCH (13:39)
[2025-04-01] MEDS: VERSED ONE (13:55)
[2025-04-01 14:04] LABS: BILIRUBIN,URINE NEGATIVE (NEGATIVE); BLOOD/HEMOGLOBIN,URINE NEGATIVE (NEGATIVE); GLUCOSE, URINE NEGATIVE (NEGATIVE); KETONES,URINE 1+ (NEGATIVE); LEUKOCYTE ESTERASE ,URINE NEGATIVE (NEGATIVE); NITRITES,URINE NEGATIVE (NEGATIVE); PROTEIN,URINE NEGATIVE (NEGATIVE); UROBILINOGEN,URINE NORMAL (NORMAL)
[2025-04-01 14:06] LABS: APPEARANCE,URINE CLEAR (CLEAR); COLOR,URINE STRAW (YELLOW)
--- NOTE | 2025-04-01 14:21 | RAD ---
EXAMINATION: CHEST, 1 VIEW HISTORY: SURGICAL CLEARENCE; . COMPARISON STUDY: Chest x-ray 06/08/2018 TECHNIQUE: Single frontal view of the chest FINDINGS: Lungs are expanded. Prominent interstitial markings scattered throughout both lungs. Mild cardiac silhouette enlargement with slight pulmonary vascular congestion. CP angles are sharp. Bones are intact. IMPRESSION: Subtle prominent interstitial markings scattered throughout both lungs, mild cardiac silhouette enlargement with slight pulmonary vascular congestion. THIS IS AN ELECTRONICALLY VERIFIED FINAL REPORT 04/01/2025 2:17 PM - Electronically signed by Lori Moore MD
[2025-04-01] MEDS: LEVAQUIN PREMIX IV 500 MG 500 MG/100 ML BAG IV SCH (14:40)
[2025-04-01] MEDS: LR 1,000 ML IV 1,000 ML IV ONE (15:11)
--- NOTE | 2025-04-01 15:18 | NOTE.SOAP ---
Soap Note Note for Day of Date of Exam: 04/01/25 Subjective Data Subjective Data: Rested better last night. Belly still distended. N.p.o. overnight. Surgery planned for today. Anesthesia requesting further cardiac workup. Objective Data Objective Data: Well-developed, well-nourished male in no acute distress. Belly is more distended but less tender with no bowel sounds appreciated. Heart regular rate and rhythm with lungs clear bilaterally. Mood and affect are appropriate. Assessment Assessment: 1. Small bowel obstruction, acute. 2. COPD not in exacerbation. 3. Klebsiella oxytoca in sputum sample. 4. Hypertension. Plan Plan: Put Nelson in place in anticipation of surgery. Lasix 40 IV x 1. BNP not consistent with heart failure along with clinical conditions. Doubt that patient has pneumonia but white count has been rising and there have been persistent bilateral infiltrates (I thought more likely scarring from his COPD), we will still treat the Klebsiella by changing Zosyn to Levaquin. I think patient is optimized for surgery at this time.
[2025-04-01] MEDS: AMIDATE INJ 40 MG VIAL ONE (15:52)
[2025-04-01] MEDS: DECADRON INJ ONE (15:52)
[2025-04-01] MEDS: REGLAN INJ 10 MG VIAL ONE (15:52)
[2025-04-01] MEDS: PEPCID 20 MG VIAL ONE (15:52)
[2025-04-01] MEDS: FENTANYL VIAL INJ 100 mcg ONE (15:52)
[2025-04-01] MEDS: ROBINUL ONE (15:52)
[2025-04-01] MEDS: PRECEDEX INJ VIAL ONE (15:52)
[2025-04-01] MEDS: HESPAN IV IN NS 500 ML IV ONE (15:52)
[2025-04-01] MEDS: BRIDION ONE (15:52)
[2025-04-01] MEDS: ZOFRAN INJ 4 MG VIAL ONE (15:52)
--- NOTE | 2025-04-01 16:07 | NOTE.SOAP ---
Soap Note Note for Day of Date of Exam: 04/01/25 Subjective Data Subjective Data: Patient more distended this a.m. still passing no flatus. All chest x-rays prior to this has not shown no evidence of volume overload. Was having some wheezing this morning known COPD. Seen by anesthesia and obtain chest x-ray showing some fullness in the pulmonary vasculature with moderate elevation of BNP to 335. Seen in consultation by cardiology and by his nicker Dr. Cody Roland. Currently doing better after Lasix and Nelson catheter placement. They feel we can proceed. Echo shows normal left ventricle. I discussed this with the patient's and daughter. They understand that he is at high risk. They understand that most likely we will leave him intubated post procedure. There is no telling what we might find at the time of exploration. Discussed risk of bleeding infection and leak. They understand agree to proceed. Objective Data Temperature: 97.7 F Pulse Rate: 74 Respiratory Rate: 20 Blood Pressure: 138/86 O2 Sat by Pulse Oximetry: 92 Objective Data: Patient on nasal cannula. Abdomen distended but not tender. White blood cell count 17,006 Assessment Assessment: Small bowel obstruction. History of resection of colon cancer and resection of liver tumor. Recent mild to moderate volume overload. That is being treated. Plan Plan: Exporter laparotomy lysis adhesions, possible bowel resection. Risk and benefits discussed with the patient and the family. They agreed to proceed. They understand most likely he will remain intubated postprocedure.
[2025-04-01] MEDS: MARCAINE 0.5% ONE (16:44)
--- NOTE | 2025-04-01 16:51 | OR.IMMED ---
IMMEDIATE POST-OP NOTE Immediate Post-Op Note Date of surgery/procedure: 04/01/25 Pre-Op Diagnosis: Small bowel obstruction Post-Op Diagnosis: Bowel obstruction secondary to adhesions, see findings Procedure: Laparotomy, lysis of adhesions, incidental appendectomy Surgeon/Machine Cell Tuber: Edwin Rubio MD, FACS Findings: Dilated jejunum and proximal ileum with 2 areas of adhesions of the ileum against the right abdominal sidewall with dilated bowel proximal to this and decompressed bowel distal to this. This was consistent with findings on the original CT scan. Estimated Blood Loss: < 50 cc Complications: none, NG and Nelson catheter in place Progress Notes: to PACU and then to CCU, planning extubation since case went so quickly
[2025-04-01] MEDS: DILAUDID INJ IVP PRN (17:13)
[2025-04-01] MEDS ORDERED: BENADRYL INJ 50 MG VIAL IVP PRN (17:22)
[2025-04-01] MEDS ORDERED: ZOFRAN INJ 4 MG VIAL IVP PRN (17:22)
[2025-04-01] MEDS ORDERED: BARHEMSYS INJ IVP PRN (17:22)
[2025-04-01] MEDS: DILAUDID INJ ONE (18:39)
[2025-04-02 05:33] LABS: ALANINE AMINOTRANSFERASE 30 Units/L (12-78); ALBUMIN 2.7 g/dL (3.4-5.0); ALKALINE PHOSPHATASE 81 Units/L (46-116); ASPARTATE AMINO TRANSFERASE 25 Units/L (15-37); BLOOD UREA NITROGEN 12 mg/dL (7-18); CALCIUM 8.2 mg/dL (8.5-10.1); CARBON DIOXIDE 28.4 mmol/L (21-32); CHLORIDE 105 mmol/L (98-107); COR CA(FOR HYPOALB) 9.2 mg/dL (8.5-10.1); COR NA(FOR HYPERGLY) 139 mmol/L (136-145); CREATININE 0.71 mg/dL (0.70-1.30); GLUCOSE 120 mg/dL (65-99); MAGNESIUM 1.9 mg/dL (2.0-2.9); POTASSIUM 3.7 mmol/L (3.5-5.1); SODIUM 139 mmol/L (136-145); TOTAL PROTEIN 7.1 g/dL (6.4-8.2); eGFR NON BLACK RACES > 60 (>60)
[2025-04-02 06:29] LABS: BASOPHILS % (AUTO) 0.2 % (0.2-1.0); HEMATOCRIT 39.9 % (42.0-54.0); HEMOGLOBIN 13.1 g/dL (13.5-18.0); LYMPHOCYTES # (AUTO) 0.4 X10^3/uL (1.3-2.9); LYMPHOCYTES % (AUTO) 2.7 % (21.0-51.0); MEAN CORPUSCULAR HEMOGLOBIN 29.7 pg (27.0-34.0); MEAN CORPUSCULAR HGB CONC 32.8 g/dL (33.0-35.0); MEAN CORPUSCULAR VOLUME 90.3 fL (80.0-100.0); MEAN PLATELET VOLUME 9.7 fL (7.4-11.0); MONOCYTES # (AUTO) 0.7 x10^3/uL (0.3-0.8); MONOCYTES % (AUTO) 4.9 % (0.0-13.0); NEUTROPHILS % (AUTO) 92.2 % (42.0-75.0); PLATELET COUNT 183 X10^3/uL (150.0-450.0); RED BLOOD COUNT 4.42 X10^6/uL (4.7-6.0); RED CELL DISTRIBUTION WIDTH 13.6 % (11.6-16.5); WHITE BLOOD COUNT 15.2 X10^3/uL (3.6-10.0)
[2025-04-02 06:54] LABS: BAND NEUTROPHILS % 2 % (0-10); PLATELET MORPHOLOGY COMMENT NORMAL (NORMAL)
[2025-04-02] MEDS ORDERED: CONSULT PHARMACY - POTASSIUM & MAGNESIUM XX SCH (07:00)
[2025-04-02] MEDS: LOVENOX INJ 40 MG SYR SC SCH (08:30)
[2025-04-02] MEDS: PROTONIX INJ 40 MG VIAL IVP SCH (08:30)
[2025-04-02] MEDS ORDERED: MAG-OX TAB PO SCH (09:00)
[2025-04-02] MEDS ORDERED: K-DUR TAB 20 MEQ PO SCH (09:00)
[2025-04-02] MEDS: MAGNESIUM SULFATE 1 GRAM/100 mL PREMIX 1 G/100 ML BAG IV SCH (09:57)
--- NOTE | 2025-04-02 11:14 | NOTE.SOAP ---
Soap Note Note for Day of Date of Exam: 04/02/25 Subjective Data Subjective Data: POD #1 from adhesiolysis after open laparotomy. Patient was extubated last night and has done well overnight. NG tube still in place along with NPA in the left nare. Surgery is already evaluated patient and recommending n.p.o. with ice chips and to remove the NG tube. Nelson is still in place with good output. Labs overall stable with slight improvement in the WBCs. Levaquin started yesterday after Klebsiella grew out in sputum culture. Objective Data Objective Data: Well-developed, well-nourished, obese male in no acute distress. NG tube in place in right nare with NPA in left nare. Speech is clear. Heart regular rate and rhythm. Lungs diminished but clear. Bowel sounds absent. Nonpitting edema of hands and feet. Groggy but answers questions appropriately. Assessment Assessment: 1. SBO, acute. S/p adhesiolysis on 04/01/2025 2. Hypertension 3. Some chronic bronchitis Plan Plan: Continue current medications. May add a Cardene drip based on how blood pressure does today. Follow surgery recommendations. Out of bed as tolerated per surgery approval.
[2025-04-02] MEDS ORDERED: XYLOCAINE 2 % (PLAIN) ONE (12:15)
[2025-04-02] MEDS ORDERED: KETAMINE HCL ONE (12:15)
--- NOTE | 2025-04-02 14:55 | NOTE.SOAP ---
Soap Note Note for Day of Date of Exam: 04/02/25 Subjective Data Subjective Data: had surgery yesterday to fix adhesions- still npo- no cardiac issues-wheezing better after diuresis Objective Data Objective Data: alert ox3 nad clear lungs abd: less distended rrr tele: nsr Assessment Assessment: s/p surgery for sbo/cad/htn/hlp Plan Plan: once able to take po- resume asa/amlodipine/statin
[2025-04-03 05:13] LABS: BASOPHILS % (AUTO) 0.2 % (0.2-1.0); EOSINOPHILS # (AUTO) 0.2 x10^3/uL (0.0-0.2); EOSINOPHILS % (AUTO) 1.5 % (0.9-2.9); HEMATOCRIT 37.1 % (42.0-54.0); HEMOGLOBIN 12.5 g/dL (13.5-18.0); LYMPHOCYTES # (AUTO) 1.3 X10^3/uL (1.3-2.9); MEAN CORPUSCULAR HGB CONC 33.6 g/dL (33.0-35.0); MEAN CORPUSCULAR VOLUME 89.3 fL (80.0-100.0); MEAN PLATELET VOLUME 9.6 fL (7.4-11.0); MONOCYTES # (AUTO) 1.5 x10^3/uL (0.3-0.8); MONOCYTES % (AUTO) 9.1 % (0.0-13.0); NEUTROPHILS # (AUTO) 13.4 x10^3/uL (2.2-4.8); NEUTROPHILS % (AUTO) 81.2 % (42.0-75.0); PLATELET COUNT 254 X10^3/uL (150.0-450.0); RED BLOOD COUNT 4.16 X10^6/uL (4.7-6.0); RED CELL DISTRIBUTION WIDTH 14.1 % (11.6-16.5); WHITE BLOOD COUNT 16.5 X10^3/uL (3.6-10.0)
[2025-04-03 05:20] LABS: ALANINE AMINOTRANSFERASE 29 Units/L (12-78); ALBUMIN 2.7 g/dL (3.4-5.0); ALKALINE PHOSPHATASE 78 Units/L (46-116); ASPARTATE AMINO TRANSFERASE 20 Units/L (15-37); BLOOD UREA NITROGEN 19 mg/dL (7-18); CALCIUM 8.4 mg/dL (8.5-10.1); CARBON DIOXIDE 33.9 mmol/L (21-32); CHLORIDE 103 mmol/L (98-107); COR CA(FOR HYPOALB) 9.4 mg/dL (8.5-10.1); GLUCOSE 101 mg/dL (65-99); MAGNESIUM 2.2 mg/dL (2.0-2.9); POTASSIUM 3.2 mmol/L (3.5-5.1); SODIUM 142 mmol/L (136-145); TOTAL PROTEIN 7.3 g/dL (6.4-8.2); eGFR NON BLACK RACES > 60 (>60)
--- NOTE | 2025-04-03 07:58 | NOTE.SOAP ---
Soap Note Note for Day of Date of Exam: 04/02/25 Subjective Data Subjective Data: Postoperative day 1 after laparotomy and lysis of adhesions for small bowel obstruction. Patient doing much better. Minimal NG output. Will remove NG tube. Fluid status is much improved. No significant shortness of breath tolerated extubation well. Objective Data Temperature: 98.0 F Pulse Rate: 76 Respiratory Rate: 21 Blood Pressure: 136/74 O2 Sat by Pulse Oximetry: 96 Objective Data: Incision clean and dry. Abdomen not as distended. Hemoglobin equals 13.1, white blood cell count 16,500. Assessment Assessment: Bowel obstruction status post laparotomy lysis of adhesions Plan Plan: NG tube to be removed. Remain n.p.o. except for ice chips. Observe fluid status.
[2025-04-03] MEDS: XOPENEX 1.25 MG/3 ML NEBULE NEB SCH (08:08)
--- NOTE | 2025-04-03 09:20 | NOTE.SOAP ---
Soap Note Note for Day of Date of Exam: 04/03/25 Subjective Data Subjective Data: Nelson still in place. Still on nasal cannula. Requesting to get out of bed. Has not had any flatus but did tolerate ice chips throughout the day. Still leukocytotic with mild hypokalemia this morning. Vitals overall stable. Mild anemia present. Objective Data Objective Data: Well-developed, well-nourished male in no acute distress. Anxious to get out of bed. Hearing intact conversation, head NCAT, EOMI. Speech is clear and respirations are unlabored. Lung sounds diminished but clear with regular rate and rhythm of heart. Bowel sounds are present but belly is slightly distended while being soft. Midline incision covered by bandage. Moves all extremities equally well. Assessment Assessment: 1. POD #2 from laparotomy for adhesiolysis due to SBO. 2. Simple chronic bronchitis not in exacerbation. 3. Benign essential hypertension. Plan Plan: Out of bed as tolerated. Continue Nelson care but start bladder training today. Advance diet once surgery is ready. Monitor labs and vitals.
--- NOTE | 2025-04-03 09:35 | DR.OPNOTE ---
OP NOTE Pre-Op Diagnosis: Small bowel obstruction Post-Op Diagnosis: Same secondary to adhesions of the small bowel distally of the ileum Procedure Date Date Of Procedure: 04/01/25 Procedure: PROCEDURE: Laparotomy with lysis of adhesion, incidental appendectomy NARRATIVE: The patient taken the operative suite and placed in the supine position. General endotracheal anesthesia induced and entire abdomen prepped and draped in sterile fashion. Timeout for the procedure obtained. Midline incision was made from the mid abdomen to below the umbilicus with a #15 blade knife and the subcutaneous tissue and fascia opened with electrocautery. Peritoneum opened with Metzenbaum scissors and the incision completed with electrocautery. Patient had dilated proximal small bowel at the ligament of Treitz and was dilated down to the ileum which was adhesed to the right abdominal sidewall. Bowel decompressed distal to this. The adhesions taken down sharply. Bowel was decompressed into the stomach and evacuated with a nasogastric tube. Patient has very dense adhesions in the right lowere quadrant. The appendix was found and the mesentery divided between clamps and tioed with 2-0 silk ties. The appendix divided with a CLAU stapler at the base and appendix removed. Abdomen rrigated with saline and suctioned free. The fascia closed with running looped #1 PDS and the skin closed skin suresh. Patient tolerated this well. Nasogastric tube remained in good condition position and Nelson catheter will remain as well. Patient extubated and taken to PACU. Type of Anesthesia: General Anesthetic w/ETT Findings: Small bowel obstruction with dilated bowel proximal to the terminal ileum with adhesions of the ileum to the abdominal sidewall bowel decompressed distal to this. Specimen/Pathology: Appendix Type of Fluids Used:: Lactated Ringers EBL: Less than 50 cc Cultures: Cultures obtained of abdominal fluid Complications:: None Needle/Sponge Count:: Correct Disposition/Condition: Pt. tolerated procedure without difficulty. Extubated in the OR and taken to PACU in stable condition. Patient will go from PACU to the CCU for continued recovery.
[2025-04-03] MEDS: MIRALAX POWDER (1 DOSE 17 G) PO SCH (12:56)
--- NOTE | 2025-04-03 14:18 | NOTE.SOAP ---
Soap Note Note for Day of Date of Exam: 04/03/25 Subjective Data Subjective Data: up walking/taking some po, no cp/sob Objective Data Objective Data: 150/80 p78 rrr clear lungs Assessment Assessment: post op from sbo/htn/hlp/cad Plan Plan: stop nitro patch- resume asa/amlo/statin- f/u after d/c
[2025-04-03] MEDS: NORVASC TAB 5 MG PO SCH (15:34)
[2025-04-04 05:01] LABS: BASOPHILS # (AUTO) 0.1 X10^3/uL (0.0-0.1); BASOPHILS % (AUTO) 0.3 % (0.2-1.0); EOSINOPHILS # (AUTO) 0.7 x10^3/uL (0.0-0.2); EOSINOPHILS % (AUTO) 4.3 % (0.9-2.9); HEMATOCRIT 38.1 % (42.0-54.0); HEMOGLOBIN 12.9 g/dL (13.5-18.0); LYMPHOCYTES # (AUTO) 1.4 X10^3/uL (1.3-2.9); MEAN CORPUSCULAR HEMOGLOBIN 30.1 pg (27.0-34.0); MEAN CORPUSCULAR HGB CONC 33.7 g/dL (33.0-35.0); MEAN CORPUSCULAR VOLUME 89.2 fL (80.0-100.0); MEAN PLATELET VOLUME 9.5 fL (7.4-11.0); MONOCYTES # (AUTO) 1.5 x10^3/uL (0.3-0.8); MONOCYTES % (AUTO) 9.7 % (0.0-13.0); NEUTROPHILS # (AUTO) 12.2 x10^3/uL (2.2-4.8); NEUTROPHILS % (AUTO) 76.7 % (42.0-75.0); PLATELET COUNT 283 X10^3/uL (150.0-450.0); RED BLOOD COUNT 4.27 X10^6/uL (4.7-6.0); RED CELL DISTRIBUTION WIDTH 13.7 % (11.6-16.5); WHITE BLOOD COUNT 15.9 X10^3/uL (3.6-10.0)
[2025-04-04 05:10] LABS: ALANINE AMINOTRANSFERASE 34 Units/L (12-78); ALBUMIN 2.8 g/dL (3.4-5.0); ALKALINE PHOSPHATASE 84 Units/L (46-116); ASPARTATE AMINO TRANSFERASE 21 Units/L (15-37); BLOOD UREA NITROGEN 18 mg/dL (7-18); CALCIUM 8.7 mg/dL (8.5-10.1); CARBON DIOXIDE 29.4 mmol/L (21-32); CHLORIDE 104 mmol/L (98-107); COR CA(FOR HYPOALB) 9.7 mg/dL (8.5-10.1); CREATININE 0.81 mg/dL (0.70-1.30); GLUCOSE 110 mg/dL (65-99); POTASSIUM 3.3 mmol/L (3.5-5.1); SODIUM 141 mmol/L (136-145); TOTAL PROTEIN 7.6 g/dL (6.4-8.2); eGFR NON BLACK RACES > 60 (>60)
[2025-04-04] MEDS ORDERED: CONSULT PHARMACY - POTASSIUM & MAGNESIUM XX SCH (06:00)
--- NOTE | 2025-04-04 07:54 | NOTE.SOAP ---
Soap Note Note for Day of Date of Exam: 04/04/25 Subjective Data Subjective Data: Hypertensive overnight. No issues w/ Ensure, ice, and water. BM this AM with no difficulty. Refusing neb treatments. WBCs still up. Afebrile. Objective Data Objective Data: RRR, Diminished but clear. Bowel sounds soft but active throughout. No edema of extremities. Answers questions appropriately. Assessment Assessment: 1. POD#3 for adhesiolysis due to SBO. 2. Simple chronic bronchitis 3. HTN Plan Plan: Add MiraLAX and Colace. Soft diet. OOB as tolerated. Encouraged nebs. 6min walk test. Losartan 100 qAM and Norvasc 5 qPM. Likely home in 24-48hrs.
[2025-04-04] MEDS: K-DUR TAB 20 MEQ PO SCH (08:06)
[2025-04-04] MEDS: SYNTHROID 25 mcg TAB PO SCH (08:06)
[2025-04-04] MEDS: COZAAR PO SCH (08:06)
[2025-04-04] MEDS: ASPIRIN 81 MG CHEWTAB PO SCH (08:06)
--- NOTE | 2025-04-04 10:19 | NOTE.SOAP ---
Soap Note Note for Day of Date of Exam: 04/03/25 Subjective Data Subjective Data: Patient continues to do well after laparotomy lysis of adhesions for small bowel obstruction tolerating clear liquid diet. No nausea or vomiting patient ambulating well. No shortness of breath. Appreciate input from Dr. Nieves and Dr. Daniels Objective Data Temperature: 98.4 F Pulse Rate: 77 Respiratory Rate: 18 Blood Pressure: 153/88 O2 Sat by Pulse Oximetry: 93 Objective Data: Patient ambulating. Nelson catheter to be removed tomorrow. Tolerating liquids. Incisions covered with long-term dressing and is intact without drainage . Afebrile Assessment Assessment: Status post laparotomy and lysis of adhesions for small bowel obstruction Plan Plan: Will advance diet when he has flatus or bowel movement. Continue present care.
[2025-04-04 10:20] VITALS: RESP 18
[2025-04-04 11:12] VITALS: O2SAT 95
--- NOTE | 2025-04-04 11:17 | W.DIS.FURT ---
Summary of Discharge Discharge Summary of Date Date of Exam: 04/04/25 Admission Date Date of Admission: 03/28/25 Admission Diagnosis Patient Problems (Updated 04/01/25 @ 16:52 by Bashir Rubio) Small bowel obstruction (Acute) K56.609 Hospital Course: 74-year-old male with history of colon cancer many years ago followed by liver metastasis who has had a colon resection and partial liver resection and is tumor free. Presented with nausea, vomiting and distention and CT scan consistent with small bowel obstruction. Patient was admitted and observed. We tried to pass nasogastric tube several times were unsuccessful. His vomiting resolved but he remained distended with abdominal films consistent with small bowel obstruction and was taken the operating suite on April 01. At that time he underwent laparotomy with lysis of adhesions. Just prior to the surgery he had increased shortness of breath and was evaluated by Dr. Daniels, accounts payable administrator and Dr. Guevara ,cardiology. He had a normal left ventricular function and responded to Lasix and breathing treatments. He has been stable since that time in regards to his breathing and extubated shortly after the procedure. He is now tolerating a regular diet and having bowel movements. He will be discharged home on his usual medications with addition of Percocet, 5 mg tablets, 1 every 6 hours. Pain. He will follow-up with me next week. Will arrange follow-up with Dr. Guevara and with his PCP as well. Continue daily MiraLAX as well. Vital Signs: Vital Signs (72 hours) 04/01/25 11:32 04/01/25 16:07 04/01/25 16:59 Temperature 97.7 F 97.7 F 97.0 F L Pulse Rate 74 87 Pulse Rate [Left Radial] 74 Respiratory Rate 20 20 16 Blood Pressure 138/86 129/74 Blood Pressure [Left Arm] 138/86 O2 Sat by Pulse Oximetry 92 L 92 L 94 L Oxygen Delivery Method Nasal Cannula Aerosol Face Tent Oxygen Flow Rate FIO2% 04/01/25 17:04 04/01/25 17:09 04/01/25 17:13 Temperature Pulse Rate 87 88 Pulse Rate [Left Radial] Respiratory Rate 16 17 16 Blood Pressure 131/70 132/76 Blood Pressure [Left Arm] O2 Sat by Pulse Oximetry 94 L 94 L Oxygen Delivery Method Aerosol Face Tent Aerosol Face Tent Oxygen Flow Rate FIO2% 04/01/25 17:14 04/01/25 17:19 04/01/25 17:24 Temperature Pulse Rate 86 83 83 Pulse Rate [Left Radial] Respiratory Rate 16 16 14 Blood Pressure 130/69 126/69 128/72 Blood Pressure [Left Arm] O2 Sat by Pulse Oximetry 96 96 93 L Oxygen Delivery Method Aerosol Face Tent Nasal Cannula Nasal Cannula Oxygen Flow Rate FIO2% 04/01/25 17:29 04/01/25 17:30 04/01/25 17:44 Temperature 98.1 F Pulse Rate 80 78 Pulse Rate [Left Radial] 79 Respiratory Rate 14 18 Blood Pressure 124/70 Blood Pressure [Left Arm] 128/75 O2 Sat by Pulse Oximetry 93 L 93 L 91 L Oxygen Delivery Method Nasal Cannula Oxygen Flow Rate FIO2% 04/01/25 17:45 04/01/25 17:45 04/01/25 17:45 Temperature 98.1 F Pulse Rate 79 Pulse Rate [Left Radial] 79 Respiratory Rate 20 Blood Pressure 121/71 Blood Pressure [Left Arm] 121/71 O2 Sat by Pulse Oximetry 91 L 91 L Oxygen Delivery Method Oxygen Flow Rate FIO2% 04/01/25 18:00 04/01/25 18:00 04/01/25 18:00 Temperature 98.1 F Pulse Rate 74 Pulse Rate [Left Radial] 74 Respiratory Rate 20 Blood Pressure 126/70 Blood Pressure [Left Arm] 126/70 O2 Sat by Pulse Oximetry 92 L 92 L Oxygen Delivery Method Oxygen Flow Rate FIO2% 04/01/25 18:15 04/01/25 18:15 04/01/25 18:30 Temperature Pulse Rate 72 Pulse Rate [Left Radial] Respiratory Rate Blood Pressure 127/71 128/73 Blood Pressure [Left Arm] O2 Sat by Pulse Oximetry 95 Oxygen Delivery Method Oxygen Flow Rate FIO2% 04/01/25 18:30 04/01/25 18:45 04/01/25 18:45 Temperature Pulse Rate 72 72 Pulse Rate [Left Radial] Respiratory Rate Blood Pressure 129/75 Blood Pressure [Left Arm] O2 Sat by Pulse Oximetry 95 98 Oxygen Delivery Method Oxygen Flow Rate FIO2% 04/01/25 19:00 04/01/25 19:00 04/01/25 19:00 Temperature 98.5 F Pulse Rate Pulse Rate [Left Radial] Respiratory Rate 20 Blood Pressure 129/74 Blood Pressure [Left Arm] O2 Sat by Pulse Oximetry Oxygen Delivery Method Nasal Cannula Oxygen Flow Rate 2 FIO2% 04/01/25 19:00 04/01/25 19:30 04/01/25 20:00 Temperature 99.4 F Pulse Rate 72 Pulse Rate [Left Radial] Respiratory Rate 20 Blood Pressure 124/72 Blood Pressure [Left Arm] O2 Sat by Pulse Oximetry 96 Oxygen Delivery Method Oxygen Flow Rate FIO2% 04/01/25 20:00 04/01/25 20:45 04/01/25 21:00 Temperature Pulse Rate 72 Pulse Rate [Left Radial] Respiratory Rate Blood Pressure 125/74 Blood Pressure [Left Arm] O2 Sat by Pulse Oximetry 94 L Oxygen Delivery Method Nasal Cannula Oxygen Flow Rate 2 FIO2% 28 04/01/25 21:00 04/01/25 22:00 04/01/25 22:01 Temperature Pulse Rate 71 72 Pulse Rate [Left Radial] Respiratory Rate 18 Blood Pressure 152/75 Blood Pressure [Left Arm] O2 Sat by Pulse Oximetry 95 94 L Oxygen Delivery Method Oxygen Flow Rate FIO2% 04/01/25 23:00 04/01/25 23:00 04/02/25 00:00 Temperature 99.7 F H Pulse Rate 73 Pulse Rate [Left Radial] Respiratory Rate 16 Blood Pressure 148/73 145/71 Blood Pressure [Left Arm] O2 Sat by Pulse Oximetry 95 Oxygen Delivery Method Oxygen Flow Rate FIO2% 04/02/25 00:00 04/02/25 01:00 04/02/25 01:00 Temperature Pulse Rate 74 79 Pulse Rate [Left Radial] Respiratory Rate 18 17 Blood Pressure 147/75 Blood Pressure [Left Arm] O2 Sat by Pulse Oximetry 94 L 93 L Oxygen Delivery Method Oxygen Flow Rate FIO2% 04/02/25 01:30 04/02/25 02:00 04/02/25 02:00 Temperature Pulse Rate 73 Pulse Rate [Left Radial] Respiratory Rate 20 15 Blood Pressure 130/87 Blood Pressure [Left Arm] O2 Sat by Pulse Oximetry 94 L Oxygen Delivery Method Oxygen Flow Rate FIO2% 04/02/25 02:00 04/02/25 03:00 04/02/25 03:00 Temperature Pulse Rate 74 Pulse Rate [Left Radial] Respiratory Rate 15 15 Blood Pressure 151/74 Blood Pressure [Left Arm] O2 Sat by Pulse Oximetry 96 Oxygen Delivery Method Oxygen Flow Rate FIO2% 04/02/25 04:00 04/02/25 04:00 04/02/25 05:00 Temperature 99 F Pulse Rate 73 Pulse Rate [Left Radial] Respiratory Rate 17 Blood Pressure 151/73 147/84 Blood Pressure [Left Arm] O2 Sat by Pulse Oximetry 94 L Oxygen Delivery Method Oxygen Flow Rate FIO2% 04/02/25 05:00 04/02/25 06:00 04/02/25 06:00 Temperature Pulse Rate 77 70 Pulse Rate [Left Radial] Respiratory Rate 16 17 Blood Pressure 153/78 Blood Pressure [Left Arm] O2 Sat by Pulse Oximetry 96 95 Oxygen Delivery Method Oxygen Flow Rate FIO2% 04/02/25 07:00 04/02/25 07:00 04/02/25 08:00 Temperature 98.9 F Pulse Rate 74 82 Pulse Rate [Left Radial] Respiratory Rate 17 20 Blood Pressure 165/81 153/89 Blood Pressure [Left Arm] O2 Sat by Pulse Oximetry 95 94 L Oxygen Delivery Method Nasal Cannula Nasal Cannula Nasal Cannula Oxygen Flow Rate 2 2 2 FIO2% 04/02/25 08:04 04/02/25 08:11 04/02/25 08:41 Temperature Pulse Rate Pulse Rate [Left Radial] Respiratory Rate 19 17 Blood Pressure Blood Pressure [Left Arm] O2 Sat by Pulse Oximetry Oxygen Delivery Method Nasal Cannula Oxygen Flow Rate 2 FIO2% 28 04/02/25 09:00 04/02/25 09:26 04/02/25 10:00 Temperature Pulse Rate 79 87 98 H Pulse Rate [Left Radial] Respiratory Rate 18 26 H Blood Pressure 147/77 148/74 Blood Pressure [Left Arm] O2 Sat by Pulse Oximetry 98 95 95 Oxygen Delivery Method Nasal Cannula Nasal Cannula Oxygen Flow Rate 2 2 FIO2% 04/02/25 11:00 04/02/25 12:00 04/02/25 13:00 Temperature 99.6 F Pulse Rate 72 71 68 Pulse Rate [Left Radial] Respiratory Rate 17 22 18 Blood Pressure 116/70 118/64 118/61 Blood Pressure [Left Arm] O2 Sat by Pulse Oximetry 97 95 95 Oxygen Delivery Method Nasal Cannula Nasal Cannula Nasal Cannula Oxygen Flow Rate 2 2 2 FIO2% 04/02/25 14:00 04/02/25 15:00 04/02/25 16:00 Temperature 98.7 F Pulse Rate 72 72 70 Pulse Rate [Left Radial] Respiratory Rate 19 24 24 Blood Pressure 126/64 122/71 115/65 Blood Pressure [Left Arm] O2 Sat by Pulse Oximetry 97 96 94 L Oxygen Delivery Method Nasal Cannula Nasal Cannula Nasal Cannula Oxygen Flow Rate 2 2 2 FIO2% 06/11/25 17:00 04/02/25 18:00 04/02/25 19:00 Temperature Pulse Rate 76 74 Pulse Rate [Left Radial] Respiratory Rate 21 22 Blood Pressure 125/61 130/74 Blood Pressure [Left Arm] O2 Sat by Pulse Oximetry 93 L 94 L Oxygen Delivery Method Nasal Cannula Nasal Cannula Nasal Cannula Oxygen Flow Rate 2 2 2 FIO2% 04/02/25 19:00 04/02/25 19:00 04/02/25 20:00 Temperature 98.0 F Pulse Rate 72 Pulse Rate [Left Radial] Respiratory Rate 19 Blood Pressure 134/68 136/74 Blood Pressure [Left Arm] O2 Sat by Pulse Oximetry 96 Oxygen Delivery Method Oxygen Flow Rate FIO2% 04/02/25 20:00 04/02/25 20:01 04/02/25 20:01 Temperature Pulse Rate 76 77 Pulse Rate [Left Radial] Respiratory Rate 21 Blood Pressure Blood Pressure [Left Arm] O2 Sat by Pulse Oximetry 96 96 Oxygen Delivery Method Nasal Cannula Nasal Cannula Oxygen Flow Rate 2 2 FIO2% 28 04/02/25 21:00 04/02/25 21:00 04/02/25 22:00 Temperature Pulse Rate 76 75 Pulse Rate [Left Radial] Respiratory Rate 21 21 Blood Pressure 128/69 Blood Pressure [Left Arm] O2 Sat by Pulse Oximetry 95 97 Oxygen Delivery Method Oxygen Flow Rate FIO2% 04/02/25 22:00 04/02/25 23:00 04/02/25 23:00 Temperature Pulse Rate 70 Pulse Rate [Left Radial] Respiratory Rate 19 Blood Pressure 141/77 148/77 Blood Pressure [Left Arm] O2 Sat by Pulse Oximetry 96 Oxygen Delivery Method Oxygen Flow Rate FIO2% 04/03/25 00:00 04/03/25 00:00 04/03/25 00:04 Temperature 98.4 F Pulse Rate 71 Pulse Rate [Left Radial] Respiratory Rate 20 Blood Pressure 138/75 Blood Pressure [Left Arm] O2 Sat by Pulse Oximetry 96 Oxygen Delivery Method Nasal Cannula Oxygen Flow Rate 2 FIO2% 28 04/03/25 01:00 04/03/25 01:00 04/03/25 02:00 Temperature Pulse Rate 69 Pulse Rate [Left Radial] Respiratory Rate 21 Blood Pressure 152/80 141/79 Blood Pressure [Left Arm] O2 Sat by Pulse Oximetry 96 Oxygen Delivery Method Oxygen Flow Rate FIO2% 04/03/25 02:00 04/03/25 03:00 04/03/25 03:00 Temperature Pulse Rate 69 71 Pulse Rate [Left Radial] Respiratory Rate 21 22 Blood Pressure 140/82 Blood Pressure [Left Arm] O2 Sat by Pulse Oximetry 97 90 L Oxygen Delivery Method Oxygen Flow Rate FIO2% 04/03/25 04:00 04/03/25 04:00 04/03/25 05:00 Temperature 98.1 F Pulse Rate 69 68 Pulse Rate [Left Radial] Respiratory Rate 21 28 H Blood Pressure 145/85 Blood Pressure [Left Arm] O2 Sat by Pulse Oximetry 97 96 Oxygen Delivery Method Oxygen Flow Rate FIO2% 04/03/25 05:00 04/03/25 06:00 04/03/25 06:01 Temperature Pulse Rate 66 Pulse Rate [Left Radial] Respiratory Rate 20 Blood Pressure 136/82 143/69 Blood Pressure [Left Arm] O2 Sat by Pulse Oximetry 95 Oxygen Delivery Method Oxygen Flow Rate FIO2% 04/03/25 07:00 04/03/25 07:17 04/03/25 07:58 Temperature 98.9 F 98.0 F Pulse Rate 69 76 Pulse Rate [Left Radial] Respiratory Rate 15 21 Blood Pressure 144/75 136/74 Blood Pressure [Left Arm] O2 Sat by Pulse Oximetry 97 96 Oxygen Delivery Method Room Air Nasal Cannula Oxygen Flow Rate 2 FIO2% 04/03/25 08:09 04/03/25 12:37 04/03/25 16:04 Temperature 98.9 F 98.2 F Pulse Rate 78 81 Pulse Rate [Left Radial] Respiratory Rate 16 17 Blood Pressure 156/84 163/90 Blood Pressure [Left Arm] O2 Sat by Pulse Oximetry 98 97 Oxygen Delivery Method Room Air Room Air Room Air Oxygen Flow Rate 2 FIO2% 28 04/03/25 19:00 04/03/25 20:00 04/03/25 20:07 Temperature 98.4 F Pulse Rate 77 Pulse Rate [Left Radial] Respiratory Rate 18 Blood Pressure 153/88 Blood Pressure [Left Arm] O2 Sat by Pulse Oximetry 93 L Oxygen Delivery Method Room Air Room Air Nasal Cannula Oxygen Flow Rate 2 FIO2% 28 04/04/25 00:00 04/04/25 04:00 04/04/25 08:44 Temperature 98.2 F 98 F Pulse Rate 70 68 Pulse Rate [Left Radial] Respiratory Rate 18 20 Blood Pressure 141/89 144/94 Blood Pressure [Left Arm] O2 Sat by Pulse Oximetry 91 L 91 L Oxygen Delivery Method Room Air Room Air Nasal Cannula Oxygen Flow Rate 2 FIO2% 28 04/04/25 08:44 04/04/25 10:19 Temperature 98.4 F Pulse Rate 79 77 Pulse Rate [Left Radial] Respiratory Rate 18 Blood Pressure 153/88 Blood Pressure [Left Arm] O2 Sat by Pulse Oximetry 96 93 L Oxygen Delivery Method Oxygen Flow Rate FIO2% Labs: Laboratory Last Values WBC 15.9 X10^3/uL (3.6-10.0) H 04/04/25 04:08 RBC 4.27 X10^6/uL (4.7-6.0) L 04/04/25 04:08 Hgb 12.9 g/dL (13.5-18.0) L 04/04/25 04:08 Hct 38.1 % (42.0-54.0) L 04/04/25 04:08 MCV 89.2 fL (80.0-100.0) 04/04/25 04:08 MCH 30.1 pg (27.0-34.0) 04/04/25 04:08 MCHC 33.7 g/dL (33.0-35.0) 04/04/25 04:08 RDW 13.7 % (11.6-16.5) 04/04/25 04:08 Plt Count 283 X10^3/uL (150.0-450.0) 04/04/25 04:08 Plt Count Comment Adequate (ADEQUATE) 04/02/25 04:23 MPV 9.5 fL (7.4-11.0) 04/04/25 04:08 Neut % (Auto) 76.7 % (42.0-75.0) H 04/04/25 04:08 Lymph % (Auto) 9.0 % (21.0-51.0) L 04/04/25 04:08 Banks % (Auto) 9.7 % (0.0-13.0) 04/04/25 04:08 Eos % (Auto) 4.3 % (0.9-2.9) H 04/04/25 04:08 Baso % (Auto) 0.3 % (0.2-1.0) 04/04/25 04:08 Neut # (Auto) 12.2 x10^3/uL (2.2-4.8) H 04/04/25 04:08 Lymph # (Auto) 1.4 X10^3/uL (1.3-2.9) 04/04/25 04:08 Banks # (Auto) 1.5 x10^3/uL (0.3-0.8) H 04/04/25 04:08 Eos # (Auto) 0.7 x10^3/uL (0.0-0.2) H 04/04/25 04:08 Baso # (Auto) 0.1 X10^3/uL (0.0-0.1) 04/04/25 04:08 Absolute Nucleated RBC 0.0 /100WBC 04/04/25 04:08 Total Counted 100 04/02/25 04:23 Neutrophils % (Manual) 87 % (39-76) H 04/02/25 04:23 Band Neutrophils % 2 % (0-10) 04/02/25 04:23 Lymphocytes % (Manual) 6 % (13-43) L 04/02/25 04:23 Monocytes % (Manual) 5 % (4-9) 04/02/25 04:23 Eosinophils % (Manual) 1 % (0-6) 03/28/25 11:03 Plt Morphology Comment Normal (NORMAL) 04/02/25 04:23 RBC Morphology Normal (NORMAL) 04/02/25 04:23 PT 14.5 SECONDS (11.8-14.3) 04/01/25 11:15 INR Target Range - 04/01/25 11:15 INR 1.12 (0.8-1.3) 04/01/25 11:15 APTT 28.7 SECONDS (22.9-36.5) 04/01/25 11:15 PTT Comment - 04/01/25 11:15 Sodium 141 mmol/L (136-145) 04/04/25 04:08 Corrected Sodium TNP 04/04/25 04:08 Potassium 3.3 mmol/L (3.5-5.1) L 04/04/25 04:08 Chloride 104 mmol/L (98-107) 04/04/25 04:08 Carbon Dioxide 29.4 mmol/L (21-32) 04/04/25 04:08 BUN 18 mg/dL (7-18) 04/04/25 04:08 Creatinine 0.81 mg/dL (0.70-1.30) 04/04/25 04:08 Est GFR (MDRD) Af Amer > 60 (>60) 04/04/25 04:08 Est GFR (MDRD) Non-Af > 60 (>60) 04/04/25 04:08 Glucose 110 mg/dL (65-99) H 04/04/25 04:08 Calcium 8.7 mg/dL (8.5-10.1) 04/04/25 04:08 Corrected Calcium 9.7 mg/dL (8.5-10.1) 04/04/25 04:08 Magnesium 2.1 mg/dL (2.0-2.9) 04/04/25 04:08 Total Bilirubin 1.30 mg/dL (0.2-1.0) H 04/04/25 04:08 AST 21 Units/L (15-37) 04/04/25 04:08 ALT 34 Units/L (12-78) 04/04/25 04:08 Alkaline Phosphatase 84 Units/L (46-116) 04/04/25 04:08 B-Natriuretic Peptide 335 pg/mL (0-79) H 04/01/25 11:15 Total Protein 7.6 g/dL (6.4-8.2) 04/04/25 04:08 Albumin 2.8 g/dL (3.4-5.0) L 04/04/25 04:08 Globulin 4.8 g/dL (2.5-4.5) H 04/04/25 04:08 Albumin/Globulin Ratio 0.6 Ratio (1.1-2.1) L 04/04/25 04:08 Specimen Type Catherized urine 04/01/25 13:50 Urine Color Straw (YELLOW) 04/01/25 13:50 Urine Appearance Clear (CLEAR) 04/01/25 13:50 Urine pH 6.0 (5.0 - 8.0) 04/01/25 13:50 Ur Specific [place] 1.010 (1.000-1.030) 04/01/25 13:50 Urine Protein Negative (NEGATIVE) 04/01/25 13:50 Urine Glucose (UA) Negative (NEGATIVE) 04/01/25 13:50 Urine Ketones 1+ (NEGATIVE) 04/01/25 13:50 Urine Blood Negative (NEGATIVE) 04/01/25 13:50 Urine Nitrite Negative (NEGATIVE) 04/01/25 13:50 Urine Bilirubin Negative (NEGATIVE) 04/01/25 13:50 Urine Urobilinogen Normal (NORMAL) 04/01/25 13:50 Ur Leukocyte Esterase Negative (NEGATIVE) 04/01/25 13:50 Resp Viral Panel (PCR) See scanned report 03/31/25 08:10 Blood Type O NEGATIVE 04/01/25 06:05 Antibody Screen Negative 04/01/25 06:05 Impression: see hospital course Reason For Visit: SMALL BOWEL OBSTRUCTION Discharge Date Discharge Date: 04/04/25 Discharge Diagnosis All Active Problems (Updated 04/01/25 @ 16:52 by Bashir Rubio) Small bowel obstruction due to adhesions (Acute) Wheezing (Acute) Preop cardiovascular exam (Acute) CAD (coronary artery disease) (Acute) Small bowel obstruction (Acute) Essential (primary) hypertension (Chronic) Benign prostatic hyperplasia with lower urinary tract symptoms (Acute) Simple obesity (Acute) Simple chronic bronchitis (Acute) Chest pain (Acute) Episode of syncope (Acute) Plan of Treatment: Continue with present treatment and follow up plan. Pt is to keep follow up appointment as instructed and take medications as ordered. Discharge Medications Discharge Medications: codeine Adverse Reaction (Intermediate, Verified 03/28/25 11:11) opioids Adverse Reaction (Intermediate, Uncoded 03/28/25 11:11) CONTINUE taking the following medications levothyroxine 25 mcg tablet 25 mcg PO QDAY 03/28/25 [History] all home meds Percocet 5 mg, 1 po q 6 hr PRN pain Discharge Disposition Assessment: see hospital course Discharge Plan Discharge Plan Hospital Course: 74-year-old male with history of colon cancer many years ago followed by liver metastasis who has had a colon resection and partial liver resection and is tumor free. Presented with nausea, vomiting and distention and CT scan consistent with small bowel obstruction. Patient was admitted and observed. We tried to pass nasogastric tube several times were unsuccessful. His vomiting resolved but he remained distended with abdominal films consistent with small bowel obstruction and was taken the operating suite on April 01. At that time he underwent laparotomy with lysis of adhesions. Just prior to the surgery he had increased shortness of breath and was evaluated by Dr. Daniels, accounts payable administrator and Dr. Guevara ,cardiology. He had a normal left ventricular function and responded to Lasix and breathing treatments. He has been stable since that time in regards to his breathing and extubated shortly after the procedure. He is now tolerating a regular diet and having bowel movements. He will be discharged home on his usual medications with addition of Percocet, 5 mg tablets, 1 every 6 hours. Pain. He will follow-up with me next week. Will arrange follow-up with Dr. Guevara and with his PCP as well. Continue daily MiraLAX as well. Patient Disposition: 01 HOME, SELF-CARE Condition: Stable Health Concerns: Post Hospitalization: new medications and changes needed to prevent readmission or further decline. Pt educated and given instructions on all concerns. Care Plan Goals: Problem: Pain/Alteration in Comfort Goal: Improve/ Resolve Pain; Achieve Pain Tolerance Instructions: Take pain medications as prescribed. Contact your primary care provider if your pain is unrelieved or worsens. Follow up with primary care provider as directed. Plan of Treatment: Continue with present treatment and follow up plan. Pt is to keep follow up appointment as instructed and take medications as ordered. Assessment: see hospital course Prescriptions: New levofloxacin 500 mg Tablet 500 mg PO Q24H Qty: 7 0RF oxycodone-acetaminophen [Percocet] 5-325 mg tablet 1 tab PO Q6H MDD 4 PRNQty: 30 0RF Continued atorvastatin 40 mg tablet 40 mg PO QPM Qty: 90 3RF montelukast 10 mg tablet 10 mg PO QDAY 90 Days Qty: 90 3RF tamsulosin 0.4 mg capsule 0.4 mg PO QDAY Qty: 90 3RF amlodipine 10 mg tablet 10 mg PO QDAY Qty: 90 3RF Trelegy Ellipta 100-62.5-25 mcg blister with device 1 inh inhalation Q24H 28 Days Qty: 28 11RF levothyroxine 25 mcg tablet 25 mcg PO QDAY Follow ups/Referrals Follow ups/Referrals: OREN GUEVARA MD [STAFF PHYSICIAN, Cardiology] - 04/15/25 1:00 pm Tyrel Daniels MD [Primary Care Provider, Internal Medicine] - 04/08/25 10:30 am Bashir Rubio [STAFF PHYSICIAN, Unknown] - 04/14/25 4:00 pm Instructions Instructions: Small Bowel Obstruction Stand Alone Forms: Excuse From Work or School, Find Help Web Site, Post Hospital Follow Up Care Print Language: ISRA[place]I
[2025-04-04 13:41] VITALS: BP 139/80; PULSE 81; TEMP 97.8
--- NOTE | 2025-04-04 14:50 | RAD ---
EXAM: CHEST, 1 VIEW HISTORY: bilateral infiltrates; COMPARISON: Prior study or studies were utilized for comparison during interpretation with the most relevant dated 04/01/2025 TECHNIQUE: CHEST, 1 VIEW FINDINGS: Chest: Lines and tubes: None Mediastinum: Cardiac and mediastinal shadow is within normal limits for size and contour. Pulmonary vessels: No pulmonary vascular congestion. Lung wis[place]: No suspicious airspace opacity. Pleura: No effusion. No pneumothorax. Bones and soft tissues: No acute osseous or soft tissue abnormality. IMPRESSION: 1. No acute cardiopulmonary abnormality THIS IS AN ELECTRONICALLY VERIFIED FINAL REPORT 04/04/2025 2:47 PM - Electronically signed by Rayshawn Colon MD
[2025-04-04] MEDS ORDERED: NORVASC TAB 5 MG PO SCH (21:00)
--- NOTE | 2025-04-05 07:32 | RAD ---
EXAM: KUB HISTORY: Pneumonia COMPARISON: .br.br.br.br.br moderate gaseous distention of small bowel segments, although some colon gas is present. No mass formation or visceral enlargement is noted. Surgical clips right upper quadrant. IMPRESSION: Intestinal distention, pattern consistent with intestinal ileus or partial SBO, as described on recent CT abdomen. Pertinent clinical history for the study would assist accurate diagnosis. THIS IS AN ELECTRONICALLY VERIFIED FINAL REPORT 04/05/2025 7:16 AM - Electronically signed by Mookie Burrell MD
== END 2025-04-04 16:17 | disposition home or self-care (01) | DRG 336 ==
LOC: ER 10:47 → MED/SURG 13:09 → INTOOBSV 13:09 → MED/SURG 14:32 → ICU 04-01 16:19
PROVIDERS: ADMIT Internal Medicine; ATTEND Family Medicine
DX: Z53.8 Procedure and treatment not carried out for other reasons; Z85.038 Personal history of other malignant neoplasm of large intestine; R07.89 Other chest pain; I10 Essential (primary) hypertension; R06.02 Shortness of breath; B96.1 Klebsiella pneumoniae [K. pneumoniae] as the cause of diseases classified elsewhere; Z16.12 Extended spectrum beta lactamase (ESBL) resistance; Z90.89 Acquired absence of other organs; E03.8 Other specified hypothyroidism; K56.51 Intestinal adhesions [bands], with partial obstruction; R94.4 Abnormal results of kidney function studies; Z16.29 Resistance to other single specified antibiotic; J44.9 Chronic obstructive pulmonary disease, unspecified; R14.0 Abdominal distension (gaseous); J42 Unspecified chronic bronchitis; K56.690 Other partial intestinal obstruction; E78.2 Mixed hyperlipidemia; E80.6 Other disorders of bilirubin metabolism; Z16.11 Resistance to penicillins; R73.09 Other abnormal glucose; Z90.49 Acquired absence of other specified parts of digestive tract; R26.89 Other abnormalities of gait and mobility; Z01.810 Encounter for preprocedural cardiovascular examination